=== PATIENT | female | born 1950 | race African-American/Black ===

== ENCOUNTER 2017-11-05 06:41 | Inpatient (IN) | payer OTHER ==
[~2017-11-05] VITALS: Ht 177.8 cm; Wt 87.5 kg
[2017-11-05] VITALS (11 sets, daily range): BP systolic 85–133; BP diastolic 44–79
[~2017-11-05 06:41] MED LIST: ACETAMINOPHEN-1 EAC1 ORAL; BISACODYL5 MG ORAL; CELEBREX200 MG ORAL; COLACE100 MG ORAL; COZAAR50 MG ORAL; DEXTROSE 50%-WA50 M1 IV; FEOSOL325 MG PO; FERROUS SULFAT325 MG ORAL; GLIPIZIDE5 MG ORAL; GLUCOTROL5 MG ORAL; HYDROMORPHO1 MG/1 M4 SUBQ; HYDROMORPHO2 MG/1 M2 SUBQ; JANUVIA25 MG ORAL; LOSARTAN POTASS50 MG ORAL; LOVENOX10 MG SUBQ; MILK OF MA400 MG/51 ORAL; NOVOLOG100 UNIT/3 SUBQ; NOVOLOG100 UNITS1; ONDANSETRON4 MG/2 M1 IVP; OXYCODONE HCL5 MG ORAL; OXYCONTIN20 MG ORAL; ROXICODONE15 MG ORAL; TEMAZEPAM7.5 MG ORAL; TYLENOL EXTRA500 MG ORAL; XARELTO15 MG ORAL; XARELTO20 MG ORAL; ZOFRAN 4 MG4 MG/2 ML IV
[2017-11-05] MEDS ORDERED: Clindamycin 600mg 50 ML IV ONE (07:00)
[2017-11-05] MEDS ORDERED: celeBREX 200mg Cap **SURGERY PATIENTS ONLY ORAL ONE (07:00)
[2017-11-05] MEDS ORDERED: oxyCONTIN 20mg tab ORAL ONE (07:00)
--- NOTE | 2017-11-05 07:00 | Pre-Procedure Note/Attestation ---
Pre-Procedure Note/Attestation Complete Prior to Procedure Planned Procedure: right Procedure Narrative: R ANIA Indications for Procedure Pre-Operative Diagnosis: rt hip arthritis Attestation I attest that I discussed the nature of the procedure; its benefits; risks and complications; and alternatives (and the risks and benefits of such alternatives ), prior to the procedure, with the patient (or the patient's legal accounts payable representative). I attest that, if there was a reasonable possibility of needing a blood transfusion, the patient (or the patient's legal accounts payable representative) was given the [facility] standardized written summary, pursuant to the [facility] Blood Safety Act ([place] Health and Safety Code # 1645, as amended). I attest that I re-evaluated the patient just prior to the surgery and that there has been no change in the patient's H&P, except as documented below: NONE DEANNA ENGEL Nov 05, 2017 07:00
[2017-11-05] MEDS ORDERED: Duramorph PF 5mg/10ml amp ONE (07:44)
[2017-11-05] MEDS ORDERED: VITAMIN C1000 M2 PO (07:47)
[2017-11-05] MEDS ORDERED: MULTIVITAMINS1 EAC2 ORAL (07:47)
[2017-11-05] MEDS ORDERED: VITAMIN D1000 UNI1 ORAL (07:47)
[2017-11-05] MEDS ORDERED: Bupivacaine 0.5% Inj 30 ml vial INJ ONE (08:01)
[2017-11-05] MEDS ORDERED: EPINEPHrine 1mg/1ml Amp ONE (08:02)
[2017-11-05] MEDS ORDERED: Bacitracin 50000 Units Vial ONE (08:02)
[2017-11-05] MEDS ORDERED: NeoSporin Gu Irrig 1ml Amp IRRIG ONE (08:02)
[2017-11-05] MEDS ORDERED: Vancomycin 1gm inj IVPB ONE (08:36)
[2017-11-05] MEDS ORDERED: Propofol 200mg/20ml IV ONE ×2 (08:43→11:00)
[2017-11-05] MEDS ORDERED: Tranexamic Acid 500 MG in NS 55 ML IV ONE (10:00)
[2017-11-05] MEDS ORDERED: Tranexamic Acid 1,000 MG in NS 55 ML IVPB SCH (10:30)
[2017-11-05] MEDS ORDERED: LR 1000ml 1,000 ML IVLG SCH (10:42)
--- NOTE | 2017-11-05 10:42 | Anethesia Preoperative Eval ---
Anesthesia Pre-op PMH/ROS General Date of Evaluation: Nov 05, 2017 Time of Evaluation: 09:02 Anesthesiologist: Elsie ASA Score: ASA 3 Mallampati Score Class I : Soft palate, uvula, fauces, pillars visible Class II: Soft palate, uvula, fauces visible Class III: Soft palate, base of uvula visible Class IV: Only hard plate visible Mallampati Classification: Class II Surgeon: Kimberly Diagnosis: R hip DJD Surgical Procedure: R hip arthroplasty Anesthesia History: none Family History: no anesthesia problems Allergies: Coded Allergies: PENICILLINS (Verified Allergy, Intermediate, itching , 11/05/17) HYDROCODONE (Verified Adverse Reaction, Severe, nausea, 11/05/17) TRAMADOL (Verified Adverse Reaction, Severe, nausea, 11/05/17) CODEINE (Verified Adverse Reaction, Intermediate, nausea, 11/05/17) Medications: see eMAR Past Medical History Cardiovascular: Reports: HTN, Denies: CAD, OR, valve dz, arrhythmia, other Pulmonary: Denies: asthma, COPD, SOCO, other Gastrointestinal/Genitourinary: Reports: GERD, Denies: CRI - mild Neurologic/Psychiatric: Reports: other - chronic pain, Denies: dementia, CVA, depression/anxiety, TIA Endocrine: Reports: DM, Denies: hypothyroidism, steroids, other HEENT: Denies: cataract (L), cataract (R), glaucoma, ALUTIIQ (L), ALUTIIQ (R), other Hematology/Immune: Reports: anemia - mild, Denies: DVT, bleeding disorder, other Musculoskeletal/Integumentary: Reports: DJD, Denies: OA, RA, DDD, edema, other PMH Narrative: as above PSxH Narrative: appendectomy, bilateral knees replacement Anesthesia Pre-op Phys. Exam Physician Exam Last Vital Signs Date Time Temp Pulse Resp B/P (MAP) Pulse Ox O2 Delivery O2 Flow Rate FiO2 11/05/17 07:51 97.7 72 18 133/79 99 Room Air Constitutional: NAD Neurologic: CN 2-12 intact Cardiovascular: RRR, no M/R/G Respiratory: CTA Gastrointestinal: S/NT/ND Airway Exam Mallampati Score: Class II MO: limited Neck: stiff ROM: limited Teeth: missing Dentures: no upper, no lower Anesthesia Pre-op A/P Labs see chart Studies Pre-op Studies: EKG - NSR Risk Assessment & Plan Assessment: ASA 3 Plan: SAB vs GA Status Change Before Surgery: No Pre-Antibiotics Drug: Vancomycin 1gr. Given Within 1 Hr of Incision: Yes Time Given: 09:58 TONY DUARTE M.D. Nov 05, 2017 10:42
[2017-11-05] MEDS ORDERED: DiphenhydrAMINE 50mg/ml Inj IVP PRN (10:45)
[2017-11-05] MEDS ORDERED: LR 1000ml ONE (11:00)
[2017-11-05] MEDS ORDERED: NS Irrig 1000ml ONE (11:00)
[2017-11-05] MEDS ORDERED: fentaNYL 100 mcg/2 mL IV ONE (11:00)
[2017-11-05] MEDS ORDERED: Sterile Water Irrig 1000ml IRRIG ONE (11:00)
--- NOTE | 2017-11-05 12:18 | Brief Operative Note ---
Immediate Post Operative Note Operative Note Chief Complaint: rt hip pain Pre-op Diagnosis: rt hip arthritis Procedure: rt monika Post-op Diagnosis: same as pre-op Findings: consistent w/pre-op dx studies Surgeon: md henri Digital [employer] Strategist: linda schilling Anesthesiologist: md kj Anesthesia: general Specimen: yes Complications: none Condition: stable Fluids: ns Estimated Blood Loss: minimal Drains: none Implant(s) used?: Yes - garcia and nephLIBRA Lopez Nov 05, 2017 12:18
--- NOTE | 2017-11-05 12:26 | Immediate Post-Op Evaluation ---
Immediate Post-Op Evalulation Immediate Post-Op Evalulation Procedure: R total hip arthroplasty Date of Evaluation: Nov 05, 2017 Time of Evaluation: 12:24 IV Fluids: 1700 Blood Products: none Estimated Blood Loss: 200 Urinary Output: 150 Blood Pressure Systolic: 96 Blood Pressure Diastolic: 58 Pulse Rate: 57 Respiratory Rate: 20 O2 Sat by Pulse Oximetry: 99 Temperature (Fahrenheit): 97.8 Pain Score (1-10): 2 Nausea: No Vomiting: No Complications none Patient Status: awake, patent, none Hydration Status: adequate TONY DUARTE M.D. Nov 05, 2017 12:26
--- NOTE | 2017-11-05 13:13 | Diagnostic Imaging Report ---
Indication: Intraoperative imaging Technique: One view of the pelvis intraoperative Comparison: 04/02/2017 Findings: The acetabular cup of the right hip arthroplasty prosthesis is in place. There is also a femoral broach. A Jackson catheter is noted Impression: Intraoperative imaging, as described
--- NOTE | 2017-11-05 14:26 | General Progress Note ---
Assessment/Plan Status Narrative s/p toal hip arthroplasty pt or dvt prophyalxis paincontrol periooperative antibiotic prophyalixs also has diabetes acuucheck sliding scale januvia 100 daily adn follow Subjective Date patient seen: Nov 05, 2017 Time patient seen: 14:25 Constitutional: Reports: no symptoms HEENT: Reports: no symptoms Cardiovascular: Reports: no symptoms Respiratory: Reports: no symptoms Allergies: Coded Allergies: PENICILLINS (Verified Allergy, Intermediate, itching , 11/05/17) HYDROCODONE (Verified Adverse Reaction, Severe, nausea, 11/05/17) TRAMADOL (Verified Adverse Reaction, Severe, nausea, 11/05/17) CODEINE (Verified Adverse Reaction, Intermediate, nausea, 11/05/17) Objective Last 24 Hour Vital Signs Date Time Temp Pulse Resp B/P (MAP) Pulse Ox O2 Delivery O2 Flow Rate FiO2 11/05/17 13:25 97.0 55 14 95/52 100 Nasal Cannula 3.0 11/05/17 13:15 58 15 93/52 100 Nasal Cannula 3.0 11/05/17 13:00 56 13 99/55 100 Nasal Cannula 3.0 11/05/17 12:50 59 14 95/52 100 Nasal Cannula 3.0 11/05/17 12:40 57 12 89/52 100 Nasal Cannula 3.0 11/05/17 12:30 60 12 85/44 100 Simple Mask 6.0 11/05/17 12:26 208.0 57 20 99 11/05/17 12:25 64 14 96/54 100 Simple Mask 6.0 11/05/17 12:20 97.4 72 16 109/63 100 Simple Mask 6.0 11/05/17 07:51 97.7 72 18 133/79 99 Room Air Height (Feet): 5 Height (Inches): 10.00 Weight (Pounds): 193 General Appearance: WD/WN EENT: PERRL/EOMI Neck: supple Cardiovascular: no JVD Respiratory/Chest: lungs clear Abdomen: non tender, soft ANDREA BELLA Nov 05, 2017 14:26
--- NOTE | 2017-11-05 14:51 | Diagnostic Imaging Report ---
Indication: Postoperative status post right hip arthroplasty Technique: One view of the pelvis Comparison: 2 hours earlier Findings: Right hip arthroplasty prosthesis now in place, complete. Retained air from the surgical wound is seen within soft tissues. Severe degenerative changes of the left hip are noted Impression: Postoperative right hip, as described. No unusual features
[2017-11-05] MEDS ORDERED: oxyCODONE 5mg IR tab ORAL PRN (15:00)
[2017-11-05] MEDS ORDERED: Hydromorphone 0.5mg/0.5ml inj IVP PRN (15:00)
[2017-11-05] MEDS ORDERED: Ketorolac 30mg Inj IV PRN (15:00)
[2017-11-05] MEDS ORDERED: Milk of Magnesia 30ml Ud ORAL PRN (15:00)
[2017-11-05] MEDS: D5 1/2NS w/KCl 20mEq 1,000 ML IV SCH (16:01)
[2017-11-05] MEDS: Clindamycin 600mg 50 ML IV SCH ×2 (16:03→21:15)
[2017-11-05] MEDS: NovoLOG Insulin Flexpen SUBQ SCH ×2 (16:30→21:17)
--- NOTE | 2017-11-05 16:45 | Operative Note - Dictated ---
DATE OF OPERATION: 11/05/2017 PREOPERATIVE DIAGNOSIS: Right hip end-stage arthritis with severe arthritis and osteophyte formation. POSTOPERATIVE DIAGNOSIS: Right hip end-stage arthritis with severe arthritis and osteophyte formation. PROCEDURE: Right total hip arthroplasty using Barajas and Nephew system, size 54 mm hemispheric R3 cup with 3 holes with 2 dome screws, size 54 ultra cross-linked polyethylene liner with 20-degree lip, size #4 Anthology standard neck stem, and a 36-mm +0 cobalt-chromium femoral head. SURGEON: Devonte Harris M.D. ARMORING MACHINE OPERATOR: Romina Faria PA-C. ANESTHESIOLOGIST: Rick Zimmerman M.D. ANESTHESIA: Spinal anesthesia combined with LMA anesthesia. ESTIMATED BLOOD LOSS: Less than 150 mL. COMPLICATIONS: None. BRIEF HISTORY: The patient is a pleasant 67-year-old female, who has had ongoing arthritis in her hips. She failed nonoperative treatment. After full discussion of risks and benefits of surgery and complications associated with it including infection, bleeding, neurovascular complication, possibility of leg length discrepancy, DVT, PEs, dislocation, infection requiring resection arthroplasty, need for revision surgery down the line, possibility of injury to sciatic nerve with numbness, tingling, footdrops, or other complication, and other complications that may arise down the line, she opted for surgical treatment as described above. OPERATIVE PROCEDURE: The patient was brought to the operating table and was placed supine. Spinal anesthesia was induced. The patient was placed in left lateral decubitus position with the right hip up. The patient was stabilized using pegboard and pegs which were covered. All pressure points were well padded. The right hip was prepped and draped in usual sterile fashion. As the patient was being checked on starting the surgery, it was noted that the spinal anesthesia was not working well. Therefore, LMA anesthesia was induced by the anesthesiologist. Preop antibiotic was given and tranexamic acid was given, and standard posterior approach to the hip was undertaken. A standard incision was made over the right hip and incision was taken through subcutaneous tissue and the fascia was opened. Retractors were placed in and short external rotators were released and tagged for later repair. The capsule was T'd including the tagging. There was extensive osteophyte over the rim of the acetabulum which was debrided. The hip was then dislocated. The femoral head was very arthritic. At this point, a standard femoral neck cut was performed without any complications. At this point, the anterior acetabular retractors as well as other retractors were placed around the acetabulum. The acetabulum was visualized and it was arthritic. At this point, there was a slight osteophyte on the acetabulum. Using a reamer, the acetabulum was slightly medialized. Subsequently, sequential reaming was performed from 45 mm up to 54 mm to provide excellent stability. The inclination and anteversion was created and about 35 degrees of anteversion and 45 degrees of inclination was created. Once this was completed, trialing was performed and size 54 mm appeared to be the right size. At this point, R3 54-mm hemispheric cup with 3 dome screws was then malleted in and was well-seated in good anteversion and inclination as described previously. The 2 dome screws were placed in without any complication. Once this was completed, care was given to the liner. The acetabulum was thoroughly irrigated using Simpulse irrigation and a [id number] liner was placed in without any complication. Once this was completed, care was given to the femoral side. The femur was internally rotated. Using a experimental box tester, lateralized entry point was identified. Subsequently, a canal finder was placed and sequential broaching was performed to size #4 broach. This provided excellent axial and rotational stability. At this point, a standard neck and zero-length 36-mm femoral head was then applied and the entire construct was reduced. Leg lengths appeared to be equal. The flexion and extension was checked and appeared to be perfect. Stability was checked with external rotation and there was no anterior instability. Posterior stability was checked with hip flexed initially up to 45 degrees and subsequently to 90 degrees, and internal rotation remained up to 75-80 degrees without any dislocations. At this point, the trial components were removed. The femoral component was thoroughly irrigated. Intraoperative x-rays were obtained before removing the trial components and leg lengths appeared to be equal and the femoral canal was filled. At this point, a size #4 femoral component was then applied without any complication. Standard neck was used. Once this was well-seated, the neck and Lorenzo taper were dried and the 36-mm cobalt-chromium +0 neck length was then applied and locked in, and tapped in without any complication. Excellent stability was obtained. The entire construct was reduced. Intraoperative leg length and stability was checked and appeared to be perfect. The wounds were thoroughly irrigated using copious amount of Simpulse irrigation. At this point, short external rotators were closed using drill holes into the greater trochanter, the tensor fascia was closed using #1 Vicryl suture, subcutaneous tissue was closed in 2-0 Vicryl suture, and skin was closed using 2-0 Monocryl suture. Sterile dressing was applied and the patient was taken to recovery room in stable condition. Lap counts and instrument counts were correct. Devonte Harris M.D. DR: Thiago JOB#: [id number] CC:
[2017-11-05] MEDS: Docusate 100mg cap ORAL SCH (17:39)
[2017-11-05] MEDS ORDERED: oxyCONTIN 20mg tab ORAL SCH (21:00)
--- NOTE | 2017-11-05 22:00 | Operative Note - Dictated ---
DATE OF OPERATION: 11/05/2017 PREOPERATIVE DIAGNOSIS: Right hip end-stage arthritis with severe arthritis and osteophyte formation. POSTOPERATIVE DIAGNOSIS: Right hip end-stage arthritis with severe arthritis and osteophyte formation. PROCEDURE: Right total hip arthroplasty using Barajas and Nephew system, size 54 mm hemispheric R3 cup with 3 holes with 2 dome screws, size 54 ultra cross-linked polyethylene liner with 20-degree lip, size #4 Anthology standard neck stem, and a 36-mm +0 cobalt-chromium femoral head. SURGEON: Devonte Harris M.D. FRONT DESK LEAD: Romina Faria PA-C. ANESTHESIOLOGIST: Rick Zimmerman M.D. ANESTHESIA: Spinal anesthesia combined with LMA anesthesia. ESTIMATED BLOOD LOSS: Less than 150 mL. COMPLICATIONS: None. BRIEF HISTORY: The patient is a pleasant 67-year-old female, who has had ongoing arthritis in her hips. She failed nonoperative treatment. After full discussion of risks and benefits of surgery and complications associated with it including infection, bleeding, neurovascular complication, possibility of leg length discrepancy, DVT, PEs, dislocation, infection requiring resection arthroplasty, need for revision surgery down the line, possibility of injury to sciatic nerve with numbness, tingling, foot-drops, or other complications that may arise down the line, she opted for surgical treatment as described above. OPERATIVE PROCEDURE: The patient was brought to the operating table and was placed supine. Spinal anesthesia was induced. The patient was placed in left lateral decubitus position with the right hip up. The patient was stabilized using pegboard and pegs which were covered. All pressure points were well padded. The right hip was prepped and draped in usual sterile fashion. As the patient was being checked on starting the surgery, it was noted that the spinal anesthesia was not working well. Therefore, LMA anesthesia was induced by the anesthesiologist. Preop antibiotic was given and tranexamic acid was given, and standard posterior approach to the hip was undertaken. A standard incision was made over the right hip and incision was taken through subcutaneous tissue and the fascia was opened. Retractors were placed in and short external rotators were released and tagged for later repair. The capsule was T'd including the tagging. There was extensive osteophyte over the rim of the acetabulum which was debrided. The hip was then dislocated. The femoral head was very arthritic. At this point, a standard femoral neck cut was performed without any complications. At this point, the anterior acetabular retractors as well as other retractors were placed around the acetabulum. The acetabulum was visualized and it was arthritic. At this point, there was a slight osteophyte on the acetabulum. Using a reamer, the acetabulum was slightly medialized. Subsequently, sequential reaming was performed from 45 mm up to 54 mm to provide excellent stability. The inclination and anteversion was created and about 35 degrees of anteversion and 45 degrees of inclination was created. Once this was completed, trialing was performed and size 54 mm appeared to be the right size. At this point, R3 54-mm hemispheric cup with three dome screw holes was then malleted in and was well-seated in good anteversion and inclination as described previously. The two dome screws were placed in without any complication. Once this was completed, care was given to the liner. The acetabulum was thoroughly irrigated using Simpulse irrigation and a [id number] liner was placed in without any complication. Once this was completed, care was given to the femoral side. The femur was internally rotated. Using a crap game box person, lateralized entry point was identified. Subsequently, a canal finder was placed and sequential broaching was performed to size #4 broach. This provided excellent axial and rotational stability. At this point, a standard neck and zero-length 36-mm femoral head was then applied and the entire construct was reduced. Leg lengths appeared to be equal. The flexion and extension was checked and appeared to be perfect. Stability was checked with external rotation and there was no anterior instability. Posterior stability was checked with hip flexed initially up to 45 degrees and subsequently to 90 degrees, and internal rotation remained up to 75-80 degrees without any dislocations. At this point, the trial components were removed. The femoral component was thoroughly irrigated. Intraoperative x-rays were obtained before removing the trial components and leg lengths appeared to be equal and the femoral canal was filled. At this point, a size #4 femoral component was then applied without any complication. Standard neck was used. Once this was well-seated, the neck and Lorenzo taper were dried and the 36-mm cobalt-chromium +0 neck length was then applied and locked in, and tapped in without any complication. Excellent stability was obtained. The entire construct was reduced. Intraoperative leg length and stability was checked and appeared to be perfect. The wounds were thoroughly irrigated using copious amount of Simpulse irrigation. At this point, short external rotators were closed using drill holes into the greater trochanter, the tensor fascia was closed using #1 Vicryl suture, subcutaneous tissue was closed in 2-0 Vicryl suture, and skin was closed using 3-0 Monocryl suture. Sterile dressing was applied and the patient was taken to recovery room in stable condition. Lap counts and instrument counts were correct. Devonte Harris M.D. DR: Thiago JOB#: [id number] CC: ELIESER
[2017-11-06] VITALS (9 sets, daily range): BP systolic 84–111; BP diastolic 49–63
[2017-11-06] MEDS: D5 1/2NS w/KCl 20mEq 1,000 ML IV SCH ×3 (04:17→17:33)
[2017-11-06] MEDS: Clindamycin 600mg 50 ML IV SCH ×2 (04:17→10:07)
[2017-11-06] MEDS: NovoLOG Insulin Flexpen SUBQ SCH ×4 (06:14→20:01)
--- NOTE | 2017-11-06 08:08 | 48 Hour Post Anesthesia Eval ---
Post Anesthesia Evaluation Procedure: R total hip arthroplasty Date of Evaluation: Nov 06, 2017 Time of Evaluation: 06:50 Blood Pressure Systolic: 103 0: 63 Pulse Rate: 81 Respiratory Rate: 17 Temperature (Fahrenheit): 98.6 O2 Sat by Pulse Oximetry: 98 Airway: patent Nausea: No Vomiting: No Pain Intensity: 2 Hydration Status: adequate Cardiopulmonary Status: at baas[place] Mental Status/LOC: patient returned to baseline Post-Anesthesia Complications: 0 Follow-up care needed: N/A - further care as per primary team AMANDA NICOLE M.D. Nov 06, 2017 08:08
--- NOTE | 2017-11-06 08:13 | Orthopedic Progress Note ---
Orthopedic - Progress Note Subjective Symptoms: c/o post-op hip pain, other - tired Objective Vital Signs Labs pending Last 24 Hour Vital Signs Date Time Temp Pulse Resp B/P (MAP) Pulse Ox O2 Delivery O2 Flow Rate FiO2 11/06/17 08:08 209.5 81 17 98 11/06/17 04:39 98.6 81 17 98 98.6 11/06/17 04:00 99 Nasal Cannula 3.0 11/06/17 00:26 97.6 64 18 103/63 99 97.6 11/06/17 00:00 Nasal Cannula 3.0 11/05/17 20:52 97.5 69 18 109/66 98 97.5 11/05/17 20:00 Nasal Cannula 3.0 11/05/17 16:00 97.1 58 16 100/58 100 Nasal Cannula 3.0 97.1 11/05/17 13:25 97.0 55 14 95/52 100 Nasal Cannula 3.0 11/05/17 13:15 58 15 93/52 100 Nasal Cannula 3.0 11/05/17 13:00 56 13 99/55 100 Nasal Cannula 3.0 11/05/17 12:50 59 14 95/52 100 Nasal Cannula 3.0 11/05/17 12:40 57 12 89/52 100 Nasal Cannula 3.0 11/05/17 12:30 60 12 85/44 100 Simple Mask 6.0 11/05/17 12:26 208.0 57 20 99 11/05/17 12:25 64 14 96/54 100 Simple Mask 6.0 11/05/17 12:20 97.4 72 16 109/63 100 Simple Mask 6.0 I&O Intake and Output 11/05/17 11/06/17 19:00 07:00 Intake Total 2675 ml 675 ml Output Total 350 ml 200 ml Balance 2325 ml 475 ml Intake IV Total 2675 ml 675 ml Output Urine Total 200 ml 200 ml Estimated Blood Loss 150 ml # Voids 1 1 Wound: clean, dry, intact Drains: none Neuro Status: normal Vascular Status: normal Additional Comments xray excellent Assessment Post-op Diagnosis POD 1 Procedure Performed rt monika Plan Plan: PT, pain management - will hold BID oxy given lethargy, discharge plan - SNF on saturday, other - f/u today's labs MUCCIGROSSO,LIBRA P.A. Nov 06, 2017 08:13
[2017-11-06] MEDS: Docusate 100mg cap ORAL SCH ×3 (08:54→17:31)
[2017-11-06] MEDS: celeBREX 200mg Cap **SURGERY PATIENTS ONLY ORAL SCH (08:56)
[2017-11-06] MEDS: Enoxaparin 40mg Inj SUBQ SCH (08:57)
[2017-11-06 09:36] LABS: BASOPHILS % (AUTO) 1.1 % (0.0-2.0); EOSINOPHILS % (AUTO) 1.4 % (0.0-3.0); HEMATOCRIT 31.7 % (37.0-47.0); HEMOGLOBIN 10.8 G/DL (12.0-16.0); LYMPHOCYTES % (AUTO) 21.4 % (20.0-45.0); MEAN CORPUSCULAR VOLUME 92 FL (80-99); MONOCYTES % (AUTO) 9.9 % (1.0-10.0); NEUTROPHILS % (AUTO) 66.2 % (45.0-75.0); PLATELET COUNT 180 K/UL (150-450); RED BLOOD COUNT 3.43 M/UL (4.20-5.40); RED CELL DISTRIBUTION WIDTH 12.5 % (11.6-14.8); WHITE BLOOD COUNT 5.5 K/UL (4.8-10.8)
[2017-11-06 09:38] LABS: ANION GAP 4 mmol/L (5-15); BLOOD UREA NITROGEN 18 mg/dL (7-18); CALCIUM 8.7 MG/DL (8.5-10.1); CARBON DIOXIDE 28 MMOL/L (21-32); CHLORIDE 107 MMOL/L (98-107); CREATININE 1.4 MG/DL (0.55-1.30); SODIUM 139 MMOL/L (136-145)
--- NOTE | 2017-11-06 20:02 | General Progress Note ---
Assessment/Plan Status Narrative S/P THR PERIOPERATIVE BLOOD LOSS POST OP ANEMIA PT OT DVT PROPHYALIXS DIABETES ACCUC HECK SLIDING SCALE AD ADIET MONITOR LABS Subjective Date patient seen: Nov 06, 2017 Time patient seen: 19:58 Constitutional: Reports: no symptoms HEENT: Reports: no symptoms Cardiovascular: Reports: no symptoms Allergies: Coded Allergies: PENICILLINS (Verified Allergy, Intermediate, itching , 11/05/17) HYDROCODONE (Verified Adverse Reaction, Severe, nausea, 11/05/17) TRAMADOL (Verified Adverse Reaction, Severe, nausea, 11/05/17) CODEINE (Verified Adverse Reaction, Intermediate, nausea, 11/05/17) Objective Last 24 Hour Vital Signs Date Time Temp Pulse Resp B/P (MAP) Pulse Ox O2 Delivery O2 Flow Rate FiO2 11/06/17 18:30 99.3 11/06/17 18:00 99.3 11/06/17 17:17 99.3 96 19 105/54 95 Room Air 99.3 96 11/06/17 16:00 99.3 96 19 105/54 Room Air 99.3 11/06/17 14:15 81 105/61 11/06/17 14:15 79 87/51 11/06/17 14:15 85 111/63 11/06/17 12:31 98.2 83 20 96/52 96 Room Air 98.2 83 11/06/17 09:17 98.0 11/06/17 09:12 100.0 82 21 88/49 96 Room Air 100.0 11/06/17 09:00 98.0 84 84/58 98.0 11/06/17 09:00 91 102/53 11/06/17 09:00 87 93/50 11/06/17 08:18 100.5 11/06/17 08:08 209.5 81 17 98 11/06/17 08:00 100.5 82 21 86/49 96 Room Air 100.5 11/06/17 08:00 82 88/49 11/06/17 04:39 98.6 81 17 98 98.6 11/06/17 04:00 99 Nasal Cannula 3.0 11/06/17 00:26 97.6 64 18 103/63 99 97.6 11/06/17 00:00 Nasal Cannula 3.0 11/05/17 20:52 97.5 69 18 109/66 98 97.5 11/05/17 20:00 Nasal Cannula 3.0 Intake and Output 11/05/17 11/06/17 19:00 07:00 Intake Total 2675 ml 675 ml Output Total 350 ml 200 ml Balance 2325 ml 475 ml IV Total 2675 ml 675 ml Output Urine Total 200 ml 200 ml Estimated Blood Loss 150 ml # Voids 1 1 Laboratory Tests 11/06/17 08:35: White Blood Count 5.5, Red Blood Count 3.43L, Hemoglobin 10.8L, Hematocrit 31.7L , Mean Corpuscular Volume 92, Mean Corpuscular Hemoglobin 31.4H, Mean Corpuscular Hemoglobin Concent 33.9, Red Cell Distribution Width 12.5, Platelet Count 180, Mean Platelet Volume 5.8L, Neutrophils (%) (Auto) 66.2, Lymphocytes ( %) (Auto) 21.4, Monocytes (%) (Auto) 9.9, Eosinophils (%) (Auto) 1.4, Basophils (%) (Auto) 1.1, Sodium Level 139, Potassium Level 4.0, Chloride Level 107, Carbon Dioxide Level 28, Anion Gap 4L, Blood Urea Nitrogen 18, Creatinine 1.4H, Estimat Glomerular Filtration Rate 45.3, Glucose Level 131H, Calcium Level 8.7 Height (Feet): 5 Height (Inches): 10.00 Weight (Pounds): 193 General Appearance: WD/WN EENT: PERRL/EOMI Neck: supple Cardiovascular: normal rate, regular rhythm, no JVD Respiratory/Chest: lungs clear Abdomen: soft ANDREA BELLA Nov 06, 2017 20:01
[2017-11-07] VITALS: BP 120/70
[2017-11-07] MEDS: D5 1/2NS w/KCl 20mEq 1,000 ML IV SCH ×2 (03:55→14:50)
[2017-11-07 04:00] VITALS: BP 131/67
[2017-11-07] MEDS: NovoLOG Insulin Flexpen SUBQ SCH ×4 (06:19→21:22)
[2017-11-07 07:26] LABS: BASOPHILS % (AUTO) 0.9 % (0.0-2.0); EOSINOPHILS % (AUTO) 1.1 % (0.0-3.0); HEMATOCRIT 31.1 % (37.0-47.0); HEMOGLOBIN 10.6 G/DL (12.0-16.0); LYMPHOCYTES % (AUTO) 15.1 % (20.0-45.0); MEAN CORPUSCULAR VOLUME 92 FL (80-99); MONOCYTES % (AUTO) 7.9 % (1.0-10.0); PLATELET COUNT 184 K/UL (150-450); RED BLOOD COUNT 3.37 M/UL (4.20-5.40); RED CELL DISTRIBUTION WIDTH 12.3 % (11.6-14.8); WHITE BLOOD COUNT 7.6 K/UL (4.8-10.8)
--- NOTE | 2017-11-07 07:29 | Orthopedic Progress Note ---
Orthopedic - Progress Note Subjective Symptoms: c/o post-op hip pain Objective Vital Signs Last 24 Hour Vital Signs Date Time Temp Pulse Resp B/P (MAP) Pulse Ox O2 Delivery O2 Flow Rate FiO2 11/07/17 04:00 98.2 81 18 131/67 100 Room Air 98.2 11/07/17 00:00 98.3 82 18 120/70 99 Room Air 98.3 11/06/17 20:00 98.4 70 18 97/58 95 Room Air 98.4 11/06/17 18:30 99.3 11/06/17 18:00 99.3 11/06/17 17:17 99.3 96 19 105/54 95 Room Air 99.3 96 11/06/17 16:00 99.3 96 19 105/54 Room Air 99.3 11/06/17 14:15 81 105/61 11/06/17 14:15 79 87/51 11/06/17 14:15 85 111/63 11/06/17 12:31 98.2 83 20 96/52 96 Room Air 98.2 83 11/06/17 09:17 98.0 11/06/17 09:12 100.0 82 21 88/49 96 Room Air 100.0 11/06/17 09:00 98.0 84 84/58 98.0 11/06/17 09:00 91 102/53 11/06/17 09:00 87 93/50 11/06/17 08:18 100.5 11/06/17 08:08 209.5 81 17 98 11/06/17 08:00 100.5 82 21 86/49 96 Room Air 100.5 11/06/17 08:00 82 88/49 I&O Intake and Output 11/06/17 11/07/17 19:00 07:00 Intake Total 1625 ml 1340 ml Output Total 300 ml Balance 1325 ml 1340 ml Intake Oral 875 ml 240 ml IV Total 750 ml 1100 ml Output Urine Total 300 ml # Voids 1 2 Wound: clean, dry Drains: none Neuro Status: normal Assessment Post-op Diagnosis Doing well s/p Right ANIA Plan Plan: PT, pain management, discharge plan Additional Comments Dressing changes today Check DEANNA Liao Nov 07, 2017 07:29
[2017-11-07 08:00] VITALS: BP 137/73
[2017-11-07] MEDS: Docusate 100mg cap ORAL SCH ×3 (09:29→17:36)
[2017-11-07] MEDS: celeBREX 200mg Cap **SURGERY PATIENTS ONLY ORAL SCH (09:29)
[2017-11-07] MEDS: Enoxaparin 40mg Inj SUBQ SCH (09:30)
[2017-11-07 12:01] VITALS: BP 124/69
--- NOTE | 2017-11-07 14:25 | General Progress Note ---
Assessment/Plan Status Narrative s/p total hisp arthroplasty perioperative blood loss anemia pt ot dvt prophjyalixs paibncontyrol Subjective Date patient seen: Nov 07, 2017 Time patient seen: 14:24 Constitutional: Reports: no symptoms HEENT: Reports: no symptoms Cardiovascular: Reports: no symptoms Respiratory: Reports: no symptoms Allergies: Coded Allergies: PENICILLINS (Verified Allergy, Intermediate, itching , 11/05/17) HYDROCODONE (Verified Adverse Reaction, Severe, nausea, 11/05/17) TRAMADOL (Verified Adverse Reaction, Severe, nausea, 11/05/17) CODEINE (Verified Adverse Reaction, Intermediate, nausea, 11/05/17) Objective Last 24 Hour Vital Signs Date Time Temp Pulse Resp B/P (MAP) Pulse Ox O2 Delivery O2 Flow Rate FiO2 11/07/17 12:05 98.4 11/07/17 12:01 98.4 84 19 124/69 100 98.4 11/07/17 11:03 98.4 11/07/17 08:00 98.4 84 19 137/73 97 98.4 11/07/17 04:00 98.2 81 18 131/67 100 Room Air 98.2 11/07/17 00:00 98.3 82 18 120/70 99 Room Air 98.3 11/06/17 20:00 98.4 70 18 97/58 95 Room Air 98.4 11/06/17 18:00 99.3 11/06/17 17:17 99.3 96 19 105/54 95 Room Air 99.3 96 11/06/17 16:00 99.3 96 19 105/54 Room Air 99.3 Intake and Output 11/06/17 11/07/17 19:00 07:00 Intake Total 1625 ml 1340 ml Output Total 300 ml Balance 1325 ml 1340 ml Intake Oral 875 ml 240 ml IV Total 750 ml 1100 ml Output Urine Total 300 ml # Voids 1 2 Laboratory Tests 11/07/17 06:00: White Blood Count 7.6, Red Blood Count 3.37L, Hemoglobin 10.6L, Hematocrit 31.1L , Mean Corpuscular Volume 92, Mean Corpuscular Hemoglobin 31.3H, Mean Corpuscular Hemoglobin Concent 33.9, Red Cell Distribution Width 12.3, Platelet Count 184, Mean Platelet Volume 6.4L, Neutrophils (%) (Auto) 75.0, Lymphocytes ( %) (Auto) 15.1L, Monocytes (%) (Auto) 7.9, Eosinophils (%) (Auto) 1.1, Basophils (%) (Auto) 0.9 Height (Feet): 5 Height (Inches): 10.00 Weight (Pounds): 193 General Appearance: WD/WN Neck: supple Cardiovascular: normal rate, no JVD Respiratory/Chest: lungs clear Abdomen: non tender, soft Extremities: other - no edema ANDREA BELLA Nov 07, 2017 14:25
[2017-11-07 16:00] VITALS: BP 133/65
[2017-11-07 20:00] VITALS: BP 108/57
[2017-11-08] VITALS: BP 117/65
[2017-11-08] MEDS: D5 1/2NS w/KCl 20mEq 1,000 ML IV SCH (00:01)
[2017-11-08 04:00] VITALS: BP 130/69
[2017-11-08] MEDS: NovoLOG Insulin Flexpen SUBQ SCH ×3 (05:50→16:30)
[2017-11-08 06:38] LABS: EOSINOPHILS % (AUTO) 2.1 % (0.0-3.0); HEMATOCRIT 30.4 % (37.0-47.0); HEMOGLOBIN 10.3 G/DL (12.0-16.0); MEAN CORPUSCULAR VOLUME 92 FL (80-99); MONOCYTES % (AUTO) 8.5 % (1.0-10.0); NEUTROPHILS % (AUTO) 69.4 % (45.0-75.0); PLATELET COUNT 175 K/UL (150-450); RED CELL DISTRIBUTION WIDTH 12.2 % (11.6-14.8); WHITE BLOOD COUNT 6.5 K/UL (4.8-10.8)
[2017-11-08 08:00] VITALS: BP 132/71
--- NOTE | 2017-11-08 08:08 | Orthopedic Progress Note ---
Orthopedic - Progress Note Subjective Symptoms: improved - SLOW WITH PT. RECOMMENDATION IS FOR SNF Objective Vital Signs Laboratory Tests Test 11/08/17 05:40 White Blood Count 6.5 K/UL (4.8-10.8) Red Blood Count 3.30 M/UL (4.20-5.40) L Hemoglobin 10.3 G/DL (12.0-16.0) L Hematocrit 30.4 % (37.0-47.0) L Mean Corpuscular Volume 92 FL (80-99) Mean Corpuscular Hemoglobin 31.2 PG (27.0-31.0) H Mean Corpuscular Hemoglobin Concent 33.9 G/DL (32.0-36.0) Red Cell Distribution Width 12.2 % (11.6-14.8) Platelet Count 175 K/UL (150-450) Mean Platelet Volume 6.0 FL (6.5-10.1) L Neutrophils (%) (Auto) 69.4 % (45.0-75.0) Lymphocytes (%) (Auto) 18.0 % (20.0-45.0) L Monocytes (%) (Auto) 8.5 % (1.0-10.0) Eosinophils (%) (Auto) 2.1 % (0.0-3.0) Basophils (%) (Auto) 2.0 % (0.0-2.0) Last 24 Hour Vital Signs Date Time Temp Pulse Resp B/P (MAP) Pulse Ox O2 Delivery O2 Flow Rate FiO2 11/08/17 04:00 97.7 80 20 130/69 96 Room Air 97.7 11/08/17 00:00 98.2 79 20 117/65 98 Room Air 98.2 11/07/17 20:00 97.7 81 18 108/57 97 Room Air 97.7 11/07/17 18:10 98.4 11/07/17 17:41 98.4 11/07/17 16:00 98.4 80 19 133/65 100 98.4 11/07/17 12:01 98.4 84 19 124/69 100 98.4 11/07/17 11:03 98.4 I&O Intake and Output 11/07/17 11/08/17 19:00 07:00 Intake Total 1820 ml 800 ml Balance 1820 ml 800 ml Intake Oral 720 ml 200 ml IV Total 1100 ml 600 ml # Voids 2 3 Wound: clean, dry, intact Drains: none Neuro Status: normal Vascular Status: normal Assessment Post-op Diagnosis POD 3 Procedure Performed rt monika Plan Plan: discharge plan - REC D/C TO SNF. STABLE FOR TRANSFER AND D/C TODAY. ESTHELA ENGEL 2 WEEKS LIBRA TORRES Nov 08, 2017 08:08
--- NOTE | 2017-11-08 08:09 | Discharge Summary ---
Discharge Summary Hospital Course Date of Admission Nov 05, 2017 at 06:41 Date of Discharge 11/08/17 Admitting Diagnosis RT HIP ARTHRITIS HPI Marek Patino is a 67 year old female who was admitted on Nov 05, 2017 at 06:41 for Traumatic Arthropathy Consultations JENA Procedures RT ANIA Hospital Course BENIGN Discharge Condition Upon Discharge: stable Discharge Disposition Patient was discharged to SNF Discharge Diagnoses: LIBRA TORRES Nov 08, 2017 08:09
--- NOTE | 2017-11-08 08:36 | General Progress Note ---
Assessment/Plan Status Narrative s/p THR diabetes anemia Assessment/Plan pt ot dvt prophyalxis pain control venous duplex no DVt and follow Subjective Date patient seen: Nov 08, 2017 Time patient seen: 08:35 ROS Limited/Unobtainable: Yes Constitutional: Reports: no symptoms HEENT: Reports: no symptoms Cardiovascular: Reports: no symptoms Allergies: Coded Allergies: PENICILLINS (Verified Allergy, Intermediate, itching , 11/05/17) HYDROCODONE (Verified Adverse Reaction, Severe, nausea, 11/05/17) TRAMADOL (Verified Adverse Reaction, Severe, nausea, 11/05/17) CODEINE (Verified Adverse Reaction, Intermediate, nausea, 11/05/17) Subjective has pain sllept ok no bm yeat Objective Last 24 Hour Vital Signs Date Time Temp Pulse Resp B/P (MAP) Pulse Ox O2 Delivery O2 Flow Rate FiO2 11/08/17 04:00 97.7 80 20 130/69 96 Room Air 97.7 11/08/17 00:00 98.2 79 20 117/65 98 Room Air 98.2 11/07/17 20:00 97.7 81 18 108/57 97 Room Air 97.7 11/07/17 18:10 98.4 11/07/17 17:41 98.4 11/07/17 16:00 98.4 80 19 133/65 100 98.4 11/07/17 12:01 98.4 84 19 124/69 100 98.4 11/07/17 11:03 98.4 Intake and Output 11/07/17 11/08/17 19:00 07:00 Intake Total 1820 ml 1200 ml Balance 1820 ml 1200 ml Intake Oral 720 ml 200 ml IV Total 1100 ml 1000 ml # Voids 2 3 Laboratory Tests 11/08/17 05:40: White Blood Count 6.5, Red Blood Count 3.30L, Hemoglobin 10.3L, Hematocrit 30.4L , Mean Corpuscular Volume 92, Mean Corpuscular Hemoglobin 31.2H, Mean Corpuscular Hemoglobin Concent 33.9, Red Cell Distribution Width 12.2, Platelet Count 175, Mean Platelet Volume 6.0L, Neutrophils (%) (Auto) 69.4, Lymphocytes ( %) (Auto) 18.0L, Monocytes (%) (Auto) 8.5, Eosinophils (%) (Auto) 2.1, Basophils (%) (Auto) 2.0 Height (Feet): 5 Height (Inches): 10.00 Weight (Pounds): 193 General Appearance: WD/WN Neck: non-tender, supple Cardiovascular: normal rate, no JVD Respiratory/Chest: lungs clear Abdomen: soft ANDREA BELLA Nov 08, 2017 08:36
[2017-11-08] MEDS: Docusate 100mg cap ORAL SCH ×3 (09:18→18:00)
[2017-11-08] MEDS: Enoxaparin 40mg Inj SUBQ SCH (09:19)
[2017-11-08] MEDS: celeBREX 200mg Cap **SURGERY PATIENTS ONLY ORAL SCH (09:19)
[2017-11-08 11:44] VITALS: BP 124/74
[2017-11-08 15:56] VITALS: BP 117/62
[2017-11-08] MEDS ORDERED: JANUVIA100 MG ORAL (18:46)
[2017-11-08] MEDS ORDERED: LOVENOX40 MG/0.4 SUBQ (18:47)
[2017-11-08] MEDS ORDERED: NOVOLOG100 UNITS1 (18:48)
[2017-11-08 19:49] VITALS: BP 147/81
[2017-11-08] MEDS ORDERED: D5 1/2NS 1000ml IV ONE (19:59)
--- NOTE | 2017-11-13 13:06 | Diagnostic Imaging Report ---
APPROVED REPORT CPT Code: 28762 Present Symptoms Comments: R/O DVT Past History DVT :Left BILATERAL: Imaging reveals a patent deep venous system bilaterally. There is no evidence of thrombus within the femoral, popliteal or right tibial segments. The greater saphenous veins are also within normal limits. Doppler indicates normal spontaneous flow within these segments. The left calf veins were not well visualied, due to SCD's device.
== END 2017-11-08 20:00 | DRG 470 ==
LOC: SDSOVERFLO 06:41 → 3E 14:18
PROC: 0SR90JA Replacement of Right Hip Joint with Synthetic Substitute, Uncemented, Open Approach (ICD-10-PCS; principal; 2017-11-05 09:30)
DX: M16.11 Unilateral primary osteoarthritis, right hip (principal); I10 Essential (primary) hypertension; E11.9 Type 2 diabetes mellitus without complications; D50.0 Iron deficiency anemia secondary to blood loss (chronic); M25.751 Osteophyte, right hip
CPT/HCPCS: 36415; 72170; 80048; 82962; 85025; 86850; 86900; 86901; 87081; 93970; 94003; 94150; J1815; S0077

== ENCOUNTER 2019-02-03 05:50 | Inpatient (IN) | payer OTHER ==
--- NOTE | 2019-01-29 13:00 | NUR ---
*-* CASE MANAGEMENT NOTES *-* PT HAS A PRE-SCHEDULE TOTAL HIP REPLACEMENT. [facility] IS REQUESTING FOR CM TO UTILIZE LETTER FOR DISCHARGE PLANNING NEEDS. PLEASE ASK CM COORDINATOR FOR FORM.
[2019-02-03] VITALS (17 sets, daily range): BP systolic 105–154; BP diastolic 59–92
[~2019-02-03] VITALS: Ht 177.8 cm; Wt 88.5 kg
[~2019-02-03 05:50] MED LIST changes: +JANUVIA100 MG ORAL; +LOVENOX40 MG/0.4 SUBQ; +MULTIVITAMINS1 EAC2 ORAL; +VITAMIN C1000 M2 PO; +VITAMIN D1000 UNI1 ORAL
[2019-02-03] MEDS ORDERED: Clindamycin 600mg/D5W 50ml IV ONE (06:00)
[2019-02-03] MEDS ORDERED: oxyCONTIN 20mg tab ORAL ONE (06:00)
[2019-02-03] MEDS ORDERED: celeBREX 200mg Cap **SURGERY PATIENTS ONLY ORAL ONE (06:00)
[2019-02-03 06:17] LABS: APPEARANCE,URINE CLEAR; BILIRUBIN, URINE NEGATIVE (NEGATIVE); COLOR,URINE PALE YELLOW; GLUCOSE, URINE (UA) 4+ (NEGATIVE); KETONES,URINE 1+ (NEGATIVE); LEUKOCYTE ESTERASE ,URINE 1+ (NEGATIVE); NITRITE,URINE NEGATIVE (NEGATIVE); PH,URINE 6 (4.5-8.0); PROTEIN,URINE 1+ (NEGATIVE); UROBILINOGEN,URINE NORMAL MG/DL (0.0-1.0)
[2019-02-03] MEDS ORDERED: BALANCE PO (06:55)
[2019-02-03] MEDS ORDERED: fentaNYL 100 mcg/2 mL IV ONE (06:59)
[2019-02-03] MEDS ORDERED: Midazolam 2mg/2ml Inj ONE (06:59)
--- NOTE | 2019-02-03 07:00 | NUR ---
oxycontin was not given-pt states 'she's going to ' if she takes hydrocodone or codeine.pharmacy([facility]) was notified.
[2019-02-03] MEDS ORDERED: Propofol 200mg/20ml IV ONE (07:03)
[2019-02-03] MEDS ORDERED: Lidocaine 1% MPF 10mg/ml 5ml ONE (07:03)
--- NOTE | 2019-02-03 07:08 | Pre-Procedure Note/Attestation ---
Pre-Procedure Note/Attestation Complete Prior to Procedure Planned Procedure: left Procedure Narrative: Left total hip arthroplasty Indications for Procedure Pre-Operative Diagnosis: left hip arthritis Attestation I attest that I discussed the nature of the procedure; its benefits; risks and complications; and alternatives (and the risks and benefits of such alternatives ), prior to the procedure, with the patient (or the patient's legal sales representative public utilities). I attest that, if there was a reasonable possibility of needing a blood transfusion, the patient (or the patient's legal sales representative public utilities) was given the [facility] standardized written summary, pursuant to the James Nusrat Blood Safety Act ([place] Health and Safety Code # 1645, as amended). I attest that I re-evaluated the patient just prior to the surgery and that there has been no change in the patient's H&P, except as documented below: NONE Devonte Harris MD February 03, 2019 07:08
[2019-02-03] MEDS ORDERED: Duramorph PF 5mg/10ml amp ONE (07:11)
[2019-02-03] MEDS ORDERED: Succinylcholine 20mg/ml 10ml vial ONE (07:12)
[2019-02-03] MEDS ORDERED: Zemuron 50mg/5ml Inj IV ONE (07:12)
[2019-02-03] MEDS ORDERED: Bacitracin 50000 Units Vial ONE ×2 (07:18→07:19)
[2019-02-03] MEDS ORDERED: Bupivacaine w/Epi 0.5% 30ml Vial INJ ONE (07:18)
[2019-02-03] MEDS ORDERED: NeoSporin Gu Irrig 1ml Amp IRRIG ONE ×2 (07:18→07:19)
[2019-02-03] MEDS ORDERED: LR 1000ml ONE (07:30)
[2019-02-03] MEDS ORDERED: NS Irrig 1000ml ONE (07:30)
[2019-02-03] MEDS ORDERED: NS Irrig 2000ml IRRIG ONE ×2 (07:30→08:46)
[2019-02-03] MEDS ORDERED: Sterile Water Irrig 1000ml IRRIG ONE (07:30)
[2019-02-03] MEDS ORDERED: Clindamycin 600mg 50 ML IV ONE (07:35)
--- NOTE | 2019-02-03 07:46 | Anethesia Preoperative Eval ---
Anesthesia Pre-op PMH/ROS General Date of Evaluation: February 03, 2019 Time of Evaluation: 07:42 Anesthesiologist: Elsie ASA Score: ASA 2 Mallampati Score Class I : Soft palate, uvula, fauces, pillars visible Class II: Soft palate, uvula, fauces visible Class III: Soft palate, base of uvula visible Class IV: Only hard plate visible Mallampati Classification: Class II Surgeon: Kimberly Diagnosis: L hip DJD Surgical Procedure: L hip arthroplasty Anesthesia History: none Family History: no anesthesia problems Allergies: Coded Allergies: PENICILLINS (Verified Allergy, Intermediate, itching , 11/05/17) HYDROCODONE (Verified Adverse Reaction, Severe, nausea, 11/05/17) TRAMADOL (Verified Adverse Reaction, Severe, nausea, 11/05/17) CODEINE (Verified Adverse Reaction, Intermediate, nausea, 11/05/17) Medications: see eMAR Patient NPO?: Yes NPO Date: February 02, 2019 NPO Time: 2100 Past Medical History Cardiovascular: Reports: HTN; Denies: CAD, AL, valve dz, arrhythmia, other Pulmonary: Denies: asthma, COPD, SOCO, other Gastrointestinal/Genitourinary: Reports: GERD; Denies: CRI, ESRD, other Neurologic/Psychiatric: Denies: dementia, CVA, depression/anxiety, TIA, other Endocrine: Reports: DM - poorly controlled; Denies: hypothyroidism, steroids, other HEENT: Denies: cataract (L), cataract (R), glaucoma, [place] (L), [place] (R), other Hematology/Immune: Denies: anemia, DVT, bleeding disorder, other Musculoskeletal/Integumentary: Reports: DJD; Denies: OA, RA, DDD, edema, other Other: other - overweight PMH Narrative: as above PSxH Narrative: Bilateral knees replacement, R hip arthroplasty, ovarian cyst Anesthesia Pre-op Phys. Exam Physician Exam Last Vital Signs Date Time Temp Pulse Resp B/P (MAP) Pulse Ox O2 Delivery O2 Flow Rate FiO2 02/03/19 07:04 Room Air 02/03/19 06:44 97.0 75 18 142/85 (104) 98 Constitutional: NAD Neurologic: CN 2-12 intact Cardiovascular: RRR, no M/R/G Respiratory: CTA Gastrointestinal: S/NT/ND Airway Exam Mallampati Score: Class II MO: limited Neck: stiff ROM: limited Teeth: missing Dentures: no upper, no lower Anesthesia Pre-op A/P Labs see chart Studies Pre-op Studies: EKG - NSR Risk Assessment & Plan Assessment: ASA 2 Plan: SAB vs GA Status Change Before Surgery: No Pre-Antibiotics Drug: Clindamycin 600 mg. Given Within 1 Hr of Incision: Yes Time Given: 08:32 Rick Zimmerman MD February 03, 2019 07:46
[2019-02-03] MEDS ORDERED: Tranexamic Acid 1,000 MG in NS 65 ML IV ONE (08:00)
[2019-02-03] MEDS ORDERED: LR 1000ml 1,000 ML IVLG SCH (08:50)
[2019-02-03] MEDS ORDERED: Hydromorphone 0.5mg/0.5ml inj IVP PRN (09:00)
[2019-02-03] MEDS ORDERED: Ketorolac 30mg Inj IV PRN (09:00)
[2019-02-03] MEDS ORDERED: DiphenhydrAMINE 50mg/ml Inj IVP PRN (09:00)
[2019-02-03] MEDS ORDERED: Morphine Sulfate 2mg/ml Inj(IV/IM USE ONLY) IVP PRN (09:45)
--- NOTE | 2019-02-03 09:48 | NUR ---
CASE MANAGEMENT:REVIEW 68 YR OLD FEMALE HERE FOR ELECTIVE SURGERY SI: LEFT HIP ARTHRITIS 97.0 75 18 142/85 98% ON RA IS: TO SURGERY FOR: LT TOTAL HIP ARTHROPLASTY : TO MED/SURG 3 EAST POST OP INTERQUAL CRITERIA MET
--- NOTE | 2019-02-03 10:36 | NUR ---
DISCHARGE PLANNING DISCHARGE PLAN IS FOR PATIENT TO DISCHARGE TO SNF IN THE PAST PATIENT WENT TO [facility] SPOKE WITH DR ENGEL'S CYCLE MANAGER, BETO T: [phone] [id number] PER BETO CURRENTLY DOES NOT HAVE APPROVAL FOR SNF BUT HE IS WORKING ON OVER TURNING THE DECISION. ONCE DECISION IS OVERTURNED PATIENT CAN THEN BE REFERRED TO [facility]
--- NOTE | 2019-02-03 11:07 | Brief Operative Note ---
Immediate Post Operative Note Operative Note Chief Complaint: left hip pain Pre-op Diagnosis: left hip arthritis Procedure: left total hip arthroplasty Post-op Diagnosis: same as pre-op Findings: consistent w/pre-op dx studies Surgeon: md henri Trainmaster: linda schilling Anesthesiologist: md kj Anesthesia: general Specimen: yes Complications: none Condition: stable Fluids: ns Estimated Blood Loss: minimal Drains: none Implant(s) used?: Yes - garcia and nephRomina Nevarez February 03, 2019 11:07
--- NOTE | 2019-02-03 11:17 | Immediate Post-Op Evaluation ---
Immediate Post-Op Evalulation Immediate Post-Op Evalulation Procedure: L hip total arthroplasty Date of Evaluation: February 03, 2019 Time of Evaluation: 11:16 IV Fluids: 1800 Blood Products: none Estimated Blood Loss: 300 Urinary Output: 150 Blood Pressure Systolic: 152 Blood Pressure Diastolic: 85 Pulse Rate: 78 Respiratory Rate: 20 O2 Sat by Pulse Oximetry: 99 Temperature (Fahrenheit): 97.6 Pain Score (1-10): 1 Nausea: No Vomiting: No Complications none Patient Status: reacts, patent, none Hydration Status: adequate Rick Zimmerman MD February 03, 2019 11:17
[2019-02-03] MEDS ORDERED: Insulin Human Regular 100units/ml 3ml SUBQ SCH (11:30)
--- NOTE | 2019-02-03 11:30 | NUR ---
UNABLE TO SCAN NOVOLIN R AT THIS TIME . GIVEN 6 u sq BIJAL
[2019-02-03] MEDS ORDERED: Insulin Human Regular 100units/ml 3ml ONE (11:34)
--- NOTE | 2019-02-03 11:46 | Diagnostic Imaging Report ---
Indication: Intraoperative imaging left hip replacement Findings: Single AP view of the pelvis was performed. Jackson catheter noted. Left total hip arthroplasty noted on the single image. Right total hip arthroplasty from a previous surgery also noted. No acute fracture is identified. Alignment difficult to assess on the single view which was obtained in a limited fashion. IMPRESSION: Intraoperative imaging
--- NOTE | 2019-02-03 12:35 | NUR ---
NURSE NOTES: PATIENT RECEIVED FROM PACU ON BED WITH FAMILY AT BEDSIDE. REPORT RECEIVED FROM JORGE DIRECTOR OF PULMONARY UNIT AND TOÑA DIRECTOR OF PULMONARY UNIT. SURGICAL SITE ASSESSED. RLE SCD ON . HEAD TO TOE ASSESSMENT COMPLETED. DENIES PAIN AT THIS TIME. HAS SLIGHT MOVEMENT T LLE. DISCUSSED WITH PATIENT AND FAMILY PLAN OF CARE FOR THE DAY. VERBALIZED UNDERSTANDING. ORIENTED TO ROOM. CALL LIGHT WITHIN REACH. BED IN LOW AND LOCKED POSITION.
--- NOTE | 2019-02-03 13:35 | Diagnostic Imaging Report ---
Indication: Intraoperative imaging left hip replacement Findings: Single AP view of the pelvis was performed. A very limited portable frontal x-ray of the left hip showing left total hip replacement in progress. IMPRESSION: Intraoperative imaging
[2019-02-03] MEDS ORDERED: D5 1/2NS w/KCl 20mEq 1,000 ML IV SCH (14:00)
[2019-02-03] MEDS: Clindamycin 600mg 50 ML IV SCH ×2 (15:12→20:54)
--- NOTE | 2019-02-03 15:48 | NUR ---
P.T NOTE : P.T EVALUATION COMPLETED AND TREATMENT INITIATED POD#0 PER TKR PROTOCOL. PLEASE REFER TO P.T EVALUATION FOR CURRENT FUNCTIONAL STATUS. PATIENT RECEIVED IN SUPINE POSITION WITH SISTER IN GNOSTICISM PRESENT IN THE ROOM. EDUCATION ON HIP PRECAUTIONS AND IMPORTANCE OF FUNCTIONAL ACTIVITIES POST OP WERE PROVIDED HOWEVER PATIENT WAS TOO LETHARGIC TO PARTICIPATE AND EVEN TO CARRY ON CONVERSATION THEREFORE PARTICIPATION WITH FUNCTIONAL MOBILITY WAS LIMITED: PATIENT REQUIRED MOD/MAX A X 2 AND CONSTANT VERBAL AND TACTILE CUES TO COMPLETE SUPINE TO/FROM SIT AND SIT TO/FROM STAND TRANSITIONS. PATIENT WAS ABLE TO AMBULATE 3-4 TINY STEPS WITH MOD A X 2 USING THE FWW: NOTED BUCKLING EPISODES ON THE L KNEE AT MID STANCE: DISTANCE WAS LIMITED DUE TO SAFETY ISSUE PATIENT BEING TOO LETHARGIC. VITALS WERE STALE ALL THROUGHOUT P.T SESSION. WILL PROGRESS ACTIVITIES TOLERATED. RECOMMEND SNF FOR SHORT TERM REHAB AT D/C. WOULD REQUIRE 3 IN 1 COMMODE AND FWW IN THE ROOM. THANK YOU FOR THIS REFERRAL.
--- NOTE | 2019-02-03 16:30 | Operative Note - Dictated ---
DATE OF OPERATION: 02/03/2019 PREOPERATIVE DIAGNOSIS: Left hip end-stage arthritis. POSTOPERATIVE DIAGNOSIS: Left hip end-stage arthritis. PROCEDURE: Left total hip arthroplasty using Barajas and Nephew system, size 3 standard offset Anthology vein stem, size 52 mm R3 3-hole acetabular component with 2 dome screws, ultra cross-linked polyethylene with 20 degree lip with a 36 mm cobalt chromium head all press-fit. SURGEON: Devonte Harris M.D. GAMBLING MONITOR: Romina Faria PA-C. ANESTHESIOLOGIST: Rick Zimmerman M.D. ANESTHESIA: General LMA anesthesia. ESTIMATED BLOOD LOSS: Less than 20 mL. COMPLICATIONS: None. BRIEF HISTORY: The patient is a very pleasant 68-year-old female who has had ongoing arthritis of the left hip. She had similar problems with her bilateral knees and right hip and she underwent joint replacement on those 3 other body parts. She failed nonoperative treatment with respect to the left hip and after full discussion of risks and benefits of the surgery and complications associated with it including infection, bleeding, neurovascular complication, possibility of leg length discrepancy, possibility of femur fracture during surgery, possible infection requiring resection arthroplasty, possibility of PEs even in view of DVT prophylaxis, as well as other complications that may arise including dislocation, she opted for surgical treatment as described above. OPERATIVE PROCEDURE: The patient was brought to the operating table and was placed supine. All pressure points well padded. Spinal anesthesia was induced and LMA anesthesia was applied. The patient was placed in right lateral decubitus position with the left hip up. All pressure points well padded. The left leg was prepped and draped in usual sterile fashion. Time-out was performed and tranexamic acid was given and preop antibiotics were given. A standard posterolateral approach to the hip was undertaken. The incision was taken through subcutaneous tissue. The gluteal fascia was then opened. The tensor fascia was opened. Charnley retractors were placed in and the hip was internally rotated and the short external rotators were released and tagged for later repair. At this point, the capsule was T'd. There was a large osteophyte on the acetabulum, which was resected. At this point, the hip was dislocated and a standard femoral neck cut was performed approximately a cm proximal to the lesser trochanter. Once this was completed, the anterior acetabular retractors and inferior retractors were placed in. Two Steinmann pins were placed, 1 superiorly and 1 posteriorly to get better visualization of the acetabulum. Once this was completed, sequential reaming was performed starting with a 45 mm reamer to medialize and subsequently reaming up to 52 mm reamer, which provided excellent bleeding bone circumferentially. Once this was completed, the 52 mm trial was applied and in 35 degrees anteversion and 45 degrees inclination, this provided excellent stability. Subsequently, a 52 mm R3 cup was then opened and was malleted in with 35 degrees anteversion and 45 degrees of inclination into the acetabulum. This provided excellent initial stability of the cup. Secondary stability was obtained with using 2 additional dome screws. Once this was completed, the acetabulum appeared to be in excellent position. The wounds were thoroughly irrigated using Simpulse irrigation and a 20-degree lip acetabular liner was then placed in and locked in without any complications. Once this was completed, the care was given to the femoral component. The Steinmann pins and retractors were removed. The Jammie retractor was placed in. The box toe cementer was used to lateralize the starting point and a canal finder was placed in. Sequential broaching was performed starting from size [address] up to size 3. This provided excellent axial and rotational stability. A standard offset neck was used and a 36 mm head was applied and the hip was reduced. Intraoperative x-rays were obtained and the position of the implants were good and as expected, the leg length appeared to be equal. Stability was checked at 0, 30 degrees, 45 degrees, and 90 degrees of flexion all the way up to 75 to 80 degrees internal rotation with excellent stability. The anterior stability was excellent. Range of motion was checked and was good flexion and good extension. The leg lengths were checked as measured by the knee and the foot and there appeared to be equal. At this point, the trial components were removed. The femoral component and acetabular component were thoroughly irrigated using Simpulse irrigation. At this point, a size 3 Anthology stem was then applied and placed in without any complication. This was placed in about 15 degrees anteversion. Once this was completed, the Lorenzo taper was dried and a 36 mm cobalt chromium +0 neck was applied and was locked in without any complication. Once this was completed, the hip was placed through range of motion, stability was checked. Range of motion was excellent. Stability was excellent as described previously. The leg lengths were equal. At this point, all wounds were thoroughly irrigated again using Simpulse irrigation. The short external rotators were closed using drill holes. The tensor fascia was closed using #1 Vicryl suture. Subcutaneous tissue was closed using 2-0 Vicryl suture. Skin was closed using 3-0 Monocryl suture. Dermabond was applied and the patient tolerated the procedure well without complications. The patient was taken to the recovery in stable condition. All lap counts and instrument counts were correct. Devonte Richard Harris DR: SHAHEEN JOB#: [id number] CC:
[2019-02-03] MEDS: Docusate 100mg cap ORAL SCH (18:00)
--- NOTE | 2019-02-03 19:33 | NUR ---
NURSE NOTES: Pt is in bed, calm, pt is talking to friends who are by bedside. No acute distress noted. S/p left total hip Sx. Dressing dry and intact. Pt is on 2l n/c, pt on clear liq diet. Incentive spherometer by bedside, encouraged to use it. Abductor pillow in place. Pt doesn't complain of any pain. D5 1/2 NS with 20mEq kcl running at 75ml/hr. Jackson cath draining yellow urine. Bed locked low in position,side rails up and call light within reach. Pt will be monitored.
[2019-02-03] MEDS: NovoLOG Insulin Flexpen SUBQ SCH (20:58)
--- NOTE | 2019-02-03 22:49 | General Progress Note ---
Assessment/Plan Status Narrative s/p total joint arthroplasty perioperative antibiotic prophyalxis given diabetes border line hyeprtenison Assessment/Plan: follwo cbc physicla therpay occupational therpay monitor cbc hisotyrf diabetes accu check sliding scale monitor blood sugar willfollow Subjective Date patient seen: February 03, 2019 Time patient seen: 22:47 Allergies: Coded Allergies: PENICILLINS (Verified Allergy, Intermediate, itching , 11/05/17) HYDROCODONE (Verified Adverse Reaction, Severe, nausea, 11/05/17) TRAMADOL (Verified Adverse Reaction, Severe, nausea, 11/05/17) CODEINE (Verified Adverse Reaction, Intermediate, nausea, 11/05/17) Subjective sleeping comfortable no feve rno chills has some pain Objective Last 24 Hour Vital Signs Date Time Temp Pulse Resp B/P (MAP) Pulse Ox O2 Delivery O2 Flow Rate FiO2 02/03/19 20:00 98.1 69 20 107/64 (78) 93 02/03/19 16:00 97.7 61 16 108/71 (83) 100 02/03/19 14:55 97.4 67 16 105/63 (77) 100 02/03/19 14:55 97.4 67 16 105/63 (77) 100 02/03/19 13:55 97.2 73 15 106/61 (76) 100 02/03/19 12:55 97.1 62 16 106/59 (75) 100 02/03/19 12:25 97.2 70 16 137/81 (99) 100 02/03/19 12:25 Nasal Cannula 2.0 02/03/19 12:20 97.6 66 18 131/82 100 Nasal Cannula 3 02/03/19 12:10 64 17 125/79 100 Nasal Cannula 3 02/03/19 12:00 66 16 131/77 100 Nasal Cannula 3 02/03/19 11:55 66 18 127/80 100 Nasal Cannula 3 02/03/19 11:45 69 18 134/75 100 Nasal Cannula 3 02/03/19 11:35 67 13 132/75 100 Nasal Cannula 3 02/03/19 11:30 70 14 135/82 100 Simple Mask 6 02/03/19 11:25 77 16 132/75 100 Simple Mask 6 02/03/19 11:20 81 15 143/77 100 Simple Mask 6 02/03/19 11:17 78 20 99 02/03/19 11:16 97.4 84 14 154/92 100 Simple Mask 6 02/03/19 07:04 Room Air 02/03/19 06:44 97.0 75 18 142/85 (104) 98 Intake and Output 02/02/19 02/03/19 19:00 07:00 # Voids 1 Laboratory Tests 02/03/19 06:00: Urine Color Pale yellow, Urine Appearance Clear, Urine pH 6, Urine Specific Union 1.015, Urine Protein 1+H, Urine Glucose (UA) 4+H, Urine Ketones 1+H, Urine Blood 2+H, Urine Nitrite Negative, Urine Bilirubin Negative, Urine Urobilinogen Normal, Urine Leukocyte Esterase 1+H, Urine RBC 5-10H, Urine WBC 5- 10H, Urine Squamous Epithelial Cells Occasional, Urine Bacteria Few Height (Feet): 5 Height (Inches): 10.00 Weight (Pounds): 190 General Appearance: WD/WN Neck: other - no jvd Cardiovascular: normal rate Respiratory/Chest: lungs clear Abdomen: non tender, soft Extremities: other Gavin Beaulieu MD February 03, 2019 22:49
--- NOTE | 2019-02-03 23:57 | NUR ---
NURSE NOTES: Doctor Christofer is notified of the low urine output. Dr. Christofer Alonso ordered to increase IV fluid D5 1/2 NS with 20mEq KCl to 125ml/hr.
[2019-02-04] VITALS: BP 112/70
[2019-02-04] MEDS ORDERED: D5 1/2NS w/KCl 20mEq 1,000 ML IV SCH
[2019-02-04] MEDS: Clindamycin 600mg 50 ML IV SCH ×2 (02:08→08:24)
--- NOTE | 2019-02-04 02:14 | NUR ---
NURSE NOTES: Pt is in bed, asleep. No acute distress noted. Respiration 20. Pt will be monitored.
--- NOTE | 2019-02-04 03:26 | NUR ---
NURSE NOTES: Pt is in bed, awake an alert. No acute distress noted. Left hip dressing dry and intact. Pt able to wiggle left toes. Vitas stable.
[2019-02-04 04:00] VITALS: BP 107/57
[2019-02-04] MEDS: NovoLOG Insulin Flexpen SUBQ SCH ×4 (06:15→21:32)
--- NOTE | 2019-02-04 07:00 | NUR ---
NURSE NOTES: Pt is awake and alert. Using incentive spectrometer. Jackson cath output 400ml during this shift. No complains of pain.
--- NOTE | 2019-02-04 07:20 | NUR ---
HAND-OFF: Report given to Dayo Castillo RN.Informed to monitor urine output closely.
--- NOTE | 2019-02-04 07:25 | NUR ---
NURSE NOTES: Patient sitting in bed eating breakfast. No complain of pain or distress at this time. Surgical dressing intact and dry. Jackson catheter patent and draining well. IV dressing intact and dry. Bed lowest position. Call light within reach. Will continue to monitor.
--- NOTE | 2019-02-04 07:52 | NUR ---
CASE MANAGEMENT:REVIEW 02/04/19 SI: POD #1 S/P LT TOTAL HIP ARTHROPLASTY 99.8 89 20 107/57 99% ON 2L/NC IS: IV CLINDAMYCIN Q6HRS IVF@75/HR LOVENOX SQ QD CELEBREX PO QD JANUVIA PO QAM SS INSULIN AC+HS IRON PO TID : MED/SURG STATUS 3 EAST DCP: FROM HOME ~ REFERRED TO [facility]
--- NOTE | 2019-02-04 07:58 | NUR ---
DISCHARGE PLANNING DISCHARGE PLAN IS FOR PATIENT TO DISCHARGE TO SNF IN THE PAST PATIENT WAS DISCHARGED TO [facility] T: [phone] ENGEL'S DRIVER RETRAINING INSTRUCTOR, BETO T: [phone] [id number] PER BETO,CURRENTLY PATIENT DOES NOT HAVE APPROVAL FOR SNF BUT HE IS WORKING ON OVER TURNING THE DECISION. *CREDENTIALING ANALYST HAS FAXED CLINICALS TO [facility] *DISCHARGE PLAN IS FOR SATURDAY OR SATURDAY
[2019-02-04 08:00] VITALS: BP 106/58
[2019-02-04 08:03] LABS: BASOPHILS % (AUTO) 0.8 % (0.0-2.0); EOSINOPHILS % (AUTO) 1.1 % (0.0-3.0); HEMATOCRIT 33.1 % (37.0-47.0); HEMOGLOBIN 10.9 G/DL (12.0-16.0); LYMPHOCYTES % (AUTO) 26.7 % (20.0-45.0); MEAN CORPUSCULAR VOLUME 91 FL (80-99); NEUTROPHILS % (AUTO) 66.4 % (45.0-75.0); PLATELET COUNT 170 K/UL (150-450); RED BLOOD COUNT 3.63 M/UL (4.20-5.40); RED CELL DISTRIBUTION WIDTH 12.4 % (11.6-14.8); WHITE BLOOD COUNT 4.7 K/UL (4.8-10.8)
[2019-02-04] MEDS: D5 1/2NS w/KCl 20mEq 1,000 ML IV SCH ×2 (08:25→21:04)
[2019-02-04] MEDS: celeBREX 200mg Cap **SURGERY PATIENTS ONLY ORAL SCH (08:26)
[2019-02-04] MEDS: Docusate 100mg cap ORAL SCH ×3 (08:26→17:11)
[2019-02-04 08:27] LABS: ANION GAP 7 mmol/L (5-15); BLOOD UREA NITROGEN 11 mg/dL (7-18); CALCIUM 8.4 MG/DL (8.5-10.1); CARBON DIOXIDE 25 MMOL/L (21-32); CHLORIDE 106 MMOL/L (98-107); CREATININE 1.2 MG/DL (0.55-1.30); SODIUM 138 MMOL/L (136-145)
[2019-02-04] MEDS: Enoxaparin 40mg Inj SUBQ SCH (08:32)
--- NOTE | 2019-02-04 08:47 | Orthopedic Progress Note ---
Orthopedic - Progress Note Subjective Symptoms: c/o post-op hip pain Objective Laboratory Tests Test 02/04/19 06:59 White Blood Count 4.7 K/UL (4.8-10.8) L Red Blood Count 3.63 M/UL (4.20-5.40) L Hemoglobin 10.9 G/DL (12.0-16.0) L Hematocrit 33.1 % (37.0-47.0) L Mean Corpuscular Volume 91 FL (80-99) Mean Corpuscular Hemoglobin 30.0 PG (27.0-31.0) Mean Corpuscular Hemoglobin Concent 33.0 G/DL (32.0-36.0) Red Cell Distribution Width 12.4 % (11.6-14.8) Platelet Count 170 K/UL (150-450) Mean Platelet Volume 5.0 FL (6.5-10.1) L Neutrophils (%) (Auto) 66.4 % (45.0-75.0) Lymphocytes (%) (Auto) 26.7 % (20.0-45.0) Monocytes (%) (Auto) 5.0 % (1.0-10.0) Eosinophils (%) (Auto) 1.1 % (0.0-3.0) Basophils (%) (Auto) 0.8 % (0.0-2.0) Sodium Level 138 MMOL/L (136-145) Potassium Level 4.0 MMOL/L (3.5-5.1) Chloride Level 106 MMOL/L (98-107) Carbon Dioxide Level 25 MMOL/L (21-32) Anion Gap 7 mmol/L (5-15) Blood Urea Nitrogen 11 mg/dL (7-18) Creatinine 1.2 MG/DL (0.55-1.30) Estimat Glomerular Filtration Rate 53.9 mL/min (>60) Glucose Level 225 MG/DL (74-106) H Calcium Level 8.4 MG/DL (8.5-10.1) L Last 24 Hour Vital Signs Date Time Temp Pulse Resp B/P (MAP) Pulse Ox O2 Delivery O2 Flow Rate FiO2 02/04/19 08:00 97.7 86 20 106/58 (74) 95 02/04/19 04:00 99.8 89 20 107/57 (74) 99 02/04/19 00:00 99.5 86 18 112/70 (84) 99 02/03/19 21:00 Nasal Cannula 2.0 02/03/19 20:00 98.1 69 20 107/64 (78) 93 02/03/19 16:00 97.7 61 16 108/71 (83) 100 02/03/19 14:55 97.4 67 16 105/63 (77) 100 02/03/19 14:55 97.4 67 16 105/63 (77) 100 02/03/19 13:55 97.2 73 15 106/61 (76) 100 02/03/19 12:55 97.1 62 16 106/59 (75) 100 02/03/19 12:25 97.2 70 16 137/81 (99) 100 02/03/19 12:25 Nasal Cannula 2.0 02/03/19 12:20 97.6 66 18 131/82 100 Nasal Cannula 3 02/03/19 12:10 64 17 125/79 100 Nasal Cannula 3 02/03/19 12:00 66 16 131/77 100 Nasal Cannula 3 02/03/19 11:55 66 18 127/80 100 Nasal Cannula 3 02/03/19 11:45 69 18 134/75 100 Nasal Cannula 3 02/03/19 11:35 67 13 132/75 100 Nasal Cannula 3 02/03/19 11:30 70 14 135/82 100 Simple Mask 6 02/03/19 11:25 77 16 132/75 100 Simple Mask 6 02/03/19 11:20 81 15 143/77 100 Simple Mask 6 02/03/19 11:17 78 20 99 02/03/19 11:16 97.4 84 14 154/92 100 Simple Mask 6 Intake and Output 02/03/19 02/04/19 19:00 07:00 Intake Total 2690 ml 600 ml Output Total 550 ml 400 ml Balance 2140 ml 200 ml Intake Oral 240 ml IV Total 2450 ml 600 ml Output Urine Total 250 ml 400 ml Estimated Blood Loss 300 ml Laboratory Tests Test 02/04/19 06:59 White Blood Count 4.7 K/UL (4.8-10.8) L Red Blood Count 3.63 M/UL (4.20-5.40) L Hemoglobin 10.9 G/DL (12.0-16.0) L Hematocrit 33.1 % (37.0-47.0) L Mean Corpuscular Volume 91 FL (80-99) Mean Corpuscular Hemoglobin 30.0 PG (27.0-31.0) Mean Corpuscular Hemoglobin Concent 33.0 G/DL (32.0-36.0) Red Cell Distribution Width 12.4 % (11.6-14.8) Platelet Count 170 K/UL (150-450) Mean Platelet Volume 5.0 FL (6.5-10.1) L Neutrophils (%) (Auto) 66.4 % (45.0-75.0) Lymphocytes (%) (Auto) 26.7 % (20.0-45.0) Monocytes (%) (Auto) 5.0 % (1.0-10.0) Eosinophils (%) (Auto) 1.1 % (0.0-3.0) Basophils (%) (Auto) 0.8 % (0.0-2.0) Sodium Level 138 MMOL/L (136-145) Potassium Level 4.0 MMOL/L (3.5-5.1) Chloride Level 106 MMOL/L (98-107) Carbon Dioxide Level 25 MMOL/L (21-32) Anion Gap 7 mmol/L (5-15) Blood Urea Nitrogen 11 mg/dL (7-18) Creatinine 1.2 MG/DL (0.55-1.30) Estimat Glomerular Filtration Rate 53.9 mL/min (>60) Glucose Level 225 MG/DL (74-106) H Calcium Level 8.4 MG/DL (8.5-10.1) L Wound: clean, dry, intact Drains: none Neuro Status: normal Vascular Status: normal Additional Comments Xray reviewed: excellent Assessment Post-op Diagnosis POD 1 Procedure Performed left total hip arthroplasty Plan Plan: PT, pain management, discharge plan - SNF saturday, other - Pt has hx of DVT. Lovenox for DVT ppx Romina Faria February 04, 2019 08:47
--- NOTE | 2019-02-04 11:48 | 48 Hour Post Anesthesia Eval ---
Post Anesthesia Evaluation Procedure: L hip total arthroplasty Date of Evaluation: February 04, 2019 Time of Evaluation: 07:03 Blood Pressure Systolic: 102 0: 57 Pulse Rate: 89 Respiratory Rate: 20 Temperature (Fahrenheit): 99.8 O2 Sat by Pulse Oximetry: 99 Airway: patent Nausea: No Vomiting: No Pain Intensity: 3 Hydration Status: adequate Cardiopulmonary Status: Stable Mental Status/LOC: patient returned to baseline Follow-up Care/Observations: 0 Post-Anesthesia Complications: 0 Follow-up care needed: N/A Reggie Alfaro MD February 04, 2019 11:48
[2019-02-04 12:00] VITALS: BP 110/60
[2019-02-04 16:00] VITALS: BP 129/72
--- NOTE | 2019-02-04 17:30 | NUR ---
NURSE NOTES: Patient requested to remove Jackson catheter tomorrow. Spoke to Bienvenido DELACRUZ regarding Jackson catheter and new order received. Order read back and carried out.
--- NOTE | 2019-02-04 19:30 | NUR ---
HAND-OFF: Report given to Angela SANTORO. Patient in stable condition.
[2019-02-04 20:00] VITALS: BP 129/65
--- NOTE | 2019-02-04 20:00 | NUR ---
NURSE NOTES: RECEIVED PATIENT LYING IN BED, AWAKE, ALERT/ORIENTED X4, VERBALLY RESPONSIVE, WHEN QUESTIONED ABOUT PAIN, SHE STATED "I'M OKAY", NO FACIAL GRIMACING NOTED. S/P RIGHT TOTAL HIP ARTHROPLASTY, NOTED WITH FOAM TAPE INTACT/ICE PACK. ABDOMEN, NOTED WITH SURGICAL SCAR TO RIGHT KNEE. IV INTACT TO RIGHT HAND, NO REDNESS NOTED, FLUSHED WITHOUT DIFFICULTY, WILL CONTINUE TO MONITOR, IV FLUIDS D51/2 NS 20K 75ML PER HOUR. SCD INTACT TO LEFT LOWER EXTREMITY/ABDUCTION PILLOW IN PLACE. NO REPORT OF GI DISCOMFORT, CHAVEZ CATHETER INTACT, PATENT, DRAINING YELLOW URINE VIA GRAVITY, WILL D/C 02/05/19 PER MD ORDER. SIDE RAILS UP X3/BED IN LOWEST POSITION FOR SAFETY, CALL LIGHT WITHIN REACH. NAD.
--- NOTE | 2019-02-04 21:30 | NUR ---
NURSE NOTES: MONITORED BLOOD GLUCOSE LEVEL VIA GLUCOMETER WITH RESULT 170MG/DL, ASSESSED FOR SIGNS AND SYMPTOMS OF HYPERGLYCEMIA, NONE NOTED, MEDICATED PATIENT WITH 4 UNITS NOVOLOG PER SLIDING SCALE, TOLERATED WELL, NO ADVERSE REACTION NOTED AFTER 15 MINUTES.
--- NOTE | 2019-02-04 23:09 | General Progress Note ---
Assessment/Plan Status Narrative S/P THR HISOTORYU OF DVT DIABETES ANEMIA Assessment/Plan: PT OT DVT PROPHYALXIS PAINCONTROL STOP D5 IVF MONITOR BLOOD SUGAR VENOUS DOUPLEX BOTH LEG. Subjective Date patient seen: February 04, 2019 Time patient seen: 23:08 Constitutional: Reports: no symptoms HEENT: Reports: no symptoms Cardiovascular: Reports: no symptoms Respiratory: Reports: no symptoms Allergies: Coded Allergies: PENICILLINS (Verified Allergy, Intermediate, itching , 11/05/17) HYDROCODONE (Verified Adverse Reaction, Severe, nausea, 11/05/17) TRAMADOL (Verified Adverse Reaction, Severe, nausea, 11/05/17) CODEINE (Verified Adverse Reaction, Intermediate, nausea, 11/05/17) Subjective getting d5 no fevernochills ain Objective Last 24 Hour Vital Signs Date Time Temp Pulse Resp B/P (MAP) Pulse Ox O2 Delivery O2 Flow Rate FiO2 02/04/19 21:00 Room Air 02/04/19 20:00 97.8 79 19 129/65 (86) 98 02/04/19 16:00 99.1 89 20 129/72 (91) 100 02/04/19 12:00 98.2 87 20 110/60 (77) 98 02/04/19 11:48 89 20 99 02/04/19 09:00 Room Air 02/04/19 08:00 97.7 86 20 106/58 (74) 95 02/04/19 04:00 99.8 89 20 107/57 (74) 99 02/04/19 00:00 99.5 86 18 112/70 (84) 99 Intake and Output 02/03/19 02/04/19 19:00 07:00 Intake Total 2690 ml 600 ml Output Total 550 ml 400 ml Balance 2140 ml 200 ml Intake Oral 240 ml IV Total 2450 ml 600 ml Output Urine Total 250 ml 400 ml Estimated Blood Loss 300 ml Laboratory Tests 02/04/19 06:59: White Blood Count 4.7L, Red Blood Count 3.63L, Hemoglobin 10.9L, Hematocrit 33.1L, Mean Corpuscular Volume 91, Mean Corpuscular Hemoglobin 30.0, Mean Corpuscular Hemoglobin Concent 33.0, Red Cell Distribution Width 12.4, Platelet Count 170, Mean Platelet Volume 5.0L, Neutrophils (%) (Auto) 66.4, Lymphocytes ( %) (Auto) 26.7, Monocytes (%) (Auto) 5.0, Eosinophils (%) (Auto) 1.1, Basophils (%) (Auto) 0.8, Sodium Level 138, Potassium Level 4.0, Chloride Level 106, Carbon Dioxide Level 25, Anion Gap 7, Blood Urea Nitrogen 11, Creatinine 1.2, Estimat Glomerular Filtration Rate 53.9, Glucose Level 225H, Calcium Level 8.4L Height (Feet): 5 Height (Inches): 10.00 Weight (Pounds): 195 General Appearance: WD/WN Neck: supple Cardiovascular: normal rate, regular rhythm, no JVD Respiratory/Chest: lungs clear Abdomen: soft Gavin Beaulieu MD February 04, 2019 23:09
[2019-02-05] VITALS: BP 131/61
--- NOTE | 2019-02-05 00:25 | NUR ---
NURSE NOTES: Received report from YVAN Miller. Patient asleep, visitor at bedside. Jackson catheter patent. IVF were discontinued per MD request. Will continue to monitor.
--- NOTE | 2019-02-05 00:30 | NUR ---
NURSE NOTES: RESTING COMFORTABLY, NO SIGNS AND SYMPTOMS OF DISTRESS.
--- NOTE | 2019-02-05 00:31 | NUR ---
HAND-OFF: Report given to CLINT SEGOVIA.
--- NOTE | 2019-02-05 00:35 | NUR ---
NURSE NOTES: Left hip dressing intact, adductor pillow in place. Jackson catheter draining well. Magi PO fluids. No s/s distress.
--- NOTE | 2019-02-05 03:22 | NUR ---
NURSE NOTES: Patient complains of pain 05/26. Placed call to Dr Beaulieu, received one time order for Mobic 7.5 mg PO. Order placed and medication was given. Icepack to left hip. Will continue to monitor.
[2019-02-05 04:00] VITALS: BP 145/85
[2019-02-05] MEDS: NovoLOG Insulin Flexpen SUBQ SCH ×4 (06:15→21:13)
--- NOTE | 2019-02-05 07:10 | NUR ---
HAND-OFF: Report given to CLINT Oshea.
[2019-02-05 07:15] LABS: BASOPHILS % (AUTO) 0.7 % (0.0-2.0); HEMATOCRIT 36.8 % (37.0-47.0); HEMOGLOBIN 12.3 G/DL (12.0-16.0); LYMPHOCYTES % (AUTO) 20.4 % (20.0-45.0); MEAN CORPUSCULAR VOLUME 91 FL (80-99); MONOCYTES % (AUTO) 7.5 % (1.0-10.0); NEUTROPHILS % (AUTO) 70.4 % (45.0-75.0); PLATELET COUNT 194 K/UL (150-450); RED BLOOD COUNT 4.04 M/UL (4.20-5.40); RED CELL DISTRIBUTION WIDTH 12.3 % (11.6-14.8); WHITE BLOOD COUNT 6.9 K/UL (4.8-10.8)
--- NOTE | 2019-02-05 07:15 | NUR ---
NURSE NOTES: Patient lying in bed awake. No complain of pain or distress at this time. Surgical dressing intact and dry. IV dressing intact and dry. Jackson catheter patent and draining well. Bed lowest position. Call light within reach. Will continue to monitor.
[2019-02-05 08:00] VITALS: BP 148/82
--- NOTE | 2019-02-05 08:00 | Orthopedic Progress Note ---
Orthopedic - Progress Note Subjective Symptoms: c/o post-op hip pain Objective Last 24 Hour Vital Signs Date Time Temp Pulse Resp B/P (MAP) Pulse Ox O2 Delivery O2 Flow Rate FiO2 02/05/19 04:00 98.5 86 17 145/85 (105) 100 02/05/19 00:00 98.0 75 17 131/61 (84) 98 02/04/19 21:00 Room Air 02/04/19 20:00 97.8 79 19 129/65 (86) 98 02/04/19 16:00 99.1 89 20 129/72 (91) 100 02/04/19 12:00 98.2 87 20 110/60 (77) 98 02/04/19 11:48 89 20 99 02/04/19 09:00 Room Air 02/04/19 08:00 97.7 86 20 106/58 (74) 95 Intake and Output 02/04/19 02/05/19 18:59 06:59 Intake Total 365 ml 1170 ml Output Total 1500 ml Balance 365 ml -330 ml Intake Oral 240 ml 720 ml IV Total 125 ml 450 ml Output Urine Total 1500 ml # Voids 2 Laboratory Tests Test 02/05/19 06:00 White Blood Count 6.9 K/UL (4.8-10.8) Red Blood Count 4.04 M/UL (4.20-5.40) L Hemoglobin 12.3 G/DL (12.0-16.0) Hematocrit 36.8 % (37.0-47.0) L Mean Corpuscular Volume 91 FL (80-99) Mean Corpuscular Hemoglobin 30.4 PG (27.0-31.0) Mean Corpuscular Hemoglobin Concent 33.3 G/DL (32.0-36.0) Red Cell Distribution Width 12.3 % (11.6-14.8) Platelet Count 194 K/UL (150-450) Mean Platelet Volume 5.2 FL (6.5-10.1) L Neutrophils (%) (Auto) 70.4 % (45.0-75.0) Lymphocytes (%) (Auto) 20.4 % (20.0-45.0) Monocytes (%) (Auto) 7.5 % (1.0-10.0) Eosinophils (%) (Auto) 1.0 % (0.0-3.0) Basophils (%) (Auto) 0.7 % (0.0-2.0) Wound: clean, dry Drains: hemovac Neuro Status: normal Assessment Post-op Diagnosis s/p left ANIA doing well Plan Plan: PT, discharge plan Additional Comments continue ambulation Devonte Harris MD February 05, 2019 08:00
[2019-02-05] MEDS: Docusate 100mg cap ORAL SCH ×3 (08:36→17:47)
[2019-02-05] MEDS: celeBREX 200mg Cap **SURGERY PATIENTS ONLY ORAL SCH (08:37)
[2019-02-05] MEDS: Enoxaparin 40mg Inj SUBQ SCH (08:41)
--- NOTE | 2019-02-05 10:10 | NUR ---
NURSE NOTES: Removed Jackson catheter 400 ml yellow urine. No complain of pain or discomfort at this time. Will continue to monitor.
[2019-02-05 12:00] VITALS: BP 153/78
--- NOTE | 2019-02-05 13:02 | NUR ---
CASE MANAGEMENT:REVIEW 02/05/19 SI: POD #2 S/P LT TOTAL HIP ARTHROPLASTY 97.7 84 19 148/82 97% ON RA IS: LOVENOX SQ QD CELEBREX PO QD JANUVIA PO QAM SS INSULIN AC+HS IRON PO TID : MED/SURG STATUS 3 EAST DCP: FROM HOME ~ REFERRED TO [facility]
--- NOTE | 2019-02-05 13:11 | NUR ---
DISCHARGE PLAN ORIGINAL DISCHARGE PLAN HAS CHANGED OF TODAY PATIENT WAS INITIALLY REFERRED TO [facility] TODAY [facility] COORDIN[facility] ~ DANA T: [phone] DR ENGEL'S RN UTILIZATION MANAGEMENT UM ~ BETO T; [phone] [id number] DANA WILL COORDINATE WITH BETO TO OBTAIN AUTHORIZATION FOR ACUTE REHAB
--- NOTE | 2019-02-05 13:50 | NUR ---
NURSE NOTES: Patient voided yellow urine. No complain of pain or discomfort at this time. Patient tolerated activity well. Will continue to monitor.
[2019-02-05 16:00] VITALS: BP 151/84
--- NOTE | 2019-02-05 17:50 | NUR ---
NURSE NOTES: Changed surgical dressing as ordered. No signs and symptoms of bleeding or infection. Patient tolerated procedure well. Will continue to monitor.
--- NOTE | 2019-02-05 18:33 | General Progress Note ---
Assessment/Plan Assessment/Plan: PT OT dvt prophylaxis follow closleyu monitor no [facility] Subjective Date patient seen: February 05, 2019 Time patient seen: 18:32 Constitutional: Reports: no symptoms HEENT: Reports: no symptoms Respiratory: Reports: no symptoms Allergies: Coded Allergies: PENICILLINS (Verified Allergy, Intermediate, itching , 11/05/17) HYDROCODONE (Verified Adverse Reaction, Severe, nausea, 11/05/17) TRAMADOL (Verified Adverse Reaction, Severe, nausea, 11/05/17) CODEINE (Verified Adverse Reaction, Intermediate, nausea, 11/05/17) Objective Last 24 Hour Vital Signs Date Time Temp Pulse Resp B/P (MAP) Pulse Ox O2 Delivery O2 Flow Rate FiO2 02/05/19 16:00 98.9 91 18 151/84 (106) 98 02/05/19 12:00 98.4 96 20 153/78 (103) 97 02/05/19 09:00 Room Air 02/05/19 08:00 97.7 84 19 148/82 (104) 97 02/05/19 04:00 98.5 86 17 145/85 (105) 100 02/05/19 00:00 98.0 75 17 131/61 (84) 98 02/04/19 21:00 Room Air 02/04/19 20:00 97.8 79 19 129/65 (86) 98 Intake and Output 02/04/19 02/05/19 19:00 07:00 Intake Total 440 ml 1095 ml Output Total 1500 ml Balance 440 ml -405 ml Intake Oral 240 ml 720 ml IV Total 200 ml 375 ml Output Urine Total 1500 ml # Voids 2 Laboratory Tests 02/05/19 06:00: White Blood Count 6.9, Red Blood Count 4.04L, Hemoglobin 12.3, Hematocrit 36.8L , Mean Corpuscular Volume 91, Mean Corpuscular Hemoglobin 30.4, Mean Corpuscular Hemoglobin Concent 33.3, Red Cell Distribution Width 12.3, Platelet Count 194, Mean Platelet Volume 5.2L, Neutrophils (%) (Auto) 70.4, Lymphocytes ( %) (Auto) 20.4, Monocytes (%) (Auto) 7.5, Eosinophils (%) (Auto) 1.0, Basophils (%) (Auto) 0.7 Height (Feet): 5 Height (Inches): 10.00 Weight (Pounds): 195 Neck: non-tender Cardiovascular: normal rate, regular rhythm, no JVD Respiratory/Chest: lungs clear Abdomen: non tender, soft Extremities: other - no clubbing Gavin Beaulieu MD February 05, 2019 18:33
--- NOTE | 2019-02-05 19:30 | NUR ---
HAND-OFF: Report given to Ganag JARAMILLO. Patient in stable condition.
--- NOTE | 2019-02-05 19:40 | NUR ---
NURSE NOTES: Received report from CLINT Oshea. Patient in bed awake in high crawford position, showing no signs of acute distress. Respiration even and non labored on room air. No sob noted. IV line patent and intact. Bed in lowest position, wheels locked, and bed alarm on. Call light within reach. All needs attended and met will continue plan of care.
[2019-02-05 20:00] VITALS: BP 156/74
[2019-02-06] VITALS: BP 137/79
--- NOTE | 2019-02-06 01:30 | NUR ---
NURSE NOTES:Patient received from Nancy Zambrano Patient denies any pain at this time . no s/s distress noted . left hip dressing C/D /I . RH g18 H/L Patent and intact . safety and fall implemented . call light within reach . bed in low position at all times . well continue to monitor .
--- NOTE | 2019-02-06 01:31 | NUR ---
Report given to YVAN Parker. Patient stable.
[2019-02-06 04:00] VITALS: BP 156/77
[2019-02-06] MEDS: NovoLOG Insulin Flexpen SUBQ SCH ×4 (05:47→22:19)
[2019-02-06 07:22] LABS: EOSINOPHILS % (AUTO) 1.7 % (0.0-3.0); HEMATOCRIT 34.7 % (37.0-47.0); HEMOGLOBIN 11.8 G/DL (12.0-16.0); LYMPHOCYTES % (AUTO) 28.1 % (20.0-45.0); MEAN CORPUSCULAR VOLUME 88 FL (80-99); MONOCYTES % (AUTO) 6.7 % (1.0-10.0); NEUTROPHILS % (AUTO) 62.5 % (45.0-75.0); PLATELET COUNT 196 K/UL (150-450); RED BLOOD COUNT 3.94 M/UL (4.20-5.40); RED CELL DISTRIBUTION WIDTH 11.9 % (11.6-14.8)
--- NOTE | 2019-02-06 07:30 | NUR ---
NURSE NOTES: Patient is in bed awake and able to verbalize needs. Patient is stable. Denies pain or SOB at this time. Patient encouraged to use call light for assistance, verbalized understanding. Patient is in bed in locked and lowest position with call light within reach. Will continue to monitor.
--- NOTE | 2019-02-06 07:30 | NUR ---
HAND-OFF: Report given to PIEDAD RODRIGUEZ R.N. Addendum: 02/06/19 at 0919 by KATALINA CABRALES LVN REPORT GIVEN TO TENISHA Zambrano disregard the first notes
[2019-02-06 08:00] VITALS: BP 122/72
--- NOTE | 2019-02-06 08:25 | Orthopedic Progress Note ---
Orthopedic - Progress Note Subjective Symptoms: improved Objective Laboratory Tests Test 02/06/19 05:18 White Blood Count 6.0 K/UL (4.8-10.8) Red Blood Count 3.94 M/UL (4.20-5.40) L Hemoglobin 11.8 G/DL (12.0-16.0) L Hematocrit 34.7 % (37.0-47.0) L Mean Corpuscular Volume 88 FL (80-99) Mean Corpuscular Hemoglobin 29.9 PG (27.0-31.0) Mean Corpuscular Hemoglobin Concent 33.9 G/DL (32.0-36.0) Red Cell Distribution Width 11.9 % (11.6-14.8) Platelet Count 196 K/UL (150-450) Mean Platelet Volume 5.0 FL (6.5-10.1) L Neutrophils (%) (Auto) 62.5 % (45.0-75.0) Lymphocytes (%) (Auto) 28.1 % (20.0-45.0) Monocytes (%) (Auto) 6.7 % (1.0-10.0) Eosinophils (%) (Auto) 1.7 % (0.0-3.0) Basophils (%) (Auto) 1.0 % (0.0-2.0) Last 24 Hour Vital Signs Date Time Temp Pulse Resp B/P (MAP) Pulse Ox O2 Delivery O2 Flow Rate FiO2 02/06/19 05:47 99.2 02/06/19 04:00 98.7 98 18 156/77 (103) 02/06/19 00:00 98.7 89 18 137/79 (98) 99 02/05/19 21:00 Room Air 02/05/19 20:00 99.2 97 18 156/74 (101) 99 02/05/19 16:00 98.9 91 18 151/84 (106) 98 02/05/19 12:00 98.4 96 20 153/78 (103) 97 02/05/19 09:00 Room Air Intake and Output 02/05/19 02/06/19 18:59 06:59 Output Total 300 ml Balance -300 ml Output Urine Total 300 ml Laboratory Tests Test 02/06/19 05:18 White Blood Count 6.0 K/UL (4.8-10.8) Red Blood Count 3.94 M/UL (4.20-5.40) L Hemoglobin 11.8 G/DL (12.0-16.0) L Hematocrit 34.7 % (37.0-47.0) L Mean Corpuscular Volume 88 FL (80-99) Mean Corpuscular Hemoglobin 29.9 PG (27.0-31.0) Mean Corpuscular Hemoglobin Concent 33.9 G/DL (32.0-36.0) Red Cell Distribution Width 11.9 % (11.6-14.8) Platelet Count 196 K/UL (150-450) Mean Platelet Volume 5.0 FL (6.5-10.1) L Neutrophils (%) (Auto) 62.5 % (45.0-75.0) Lymphocytes (%) (Auto) 28.1 % (20.0-45.0) Monocytes (%) (Auto) 6.7 % (1.0-10.0) Eosinophils (%) (Auto) 1.7 % (0.0-3.0) Basophils (%) (Auto) 1.0 % (0.0-2.0) Wound: clean, dry, intact Drains: none Neuro Status: normal Vascular Status: normal Assessment Post-op Diagnosis POD 3 Procedure Performed left total hip arthroplasty Plan Plan: discharge plan - to rehab today. dodie álvarez 2 weeks. pt has all outpt meds Romina Faria February 06, 2019 08:25
--- NOTE | 2019-02-06 08:26 | Discharge Summary ---
Discharge Summary Hospital Course Date of Admission February 03, 2019 at 05:50 Date of Discharge 02/06/19 Admitting Diagnosis left hip arthritis Reason for Hospitalization: sp left total hip arthroplasty HPI Ivette Patino is a 68 year old female who was admitted on February 03, 2019 at 05:50 for Traumatic Arthropathy, Left Hip Consultations MD Christofer Procedures left total hip arthroplasty Hospital Course benign Discharge Condition Upon Discharge: improving, stable Discharge Disposition Patient was discharged to rehab Romina Faria February 06, 2019 08:26
[2019-02-06] MEDS: Docusate 100mg cap ORAL SCH ×3 (09:20→18:17)
[2019-02-06] MEDS: celeBREX 200mg Cap **SURGERY PATIENTS ONLY ORAL SCH (09:20)
[2019-02-06] MEDS: Enoxaparin 40mg Inj SUBQ SCH (09:21)
--- NOTE | 2019-02-06 09:30 | NUR ---
NURSE NOTES: Patient dropped Celebrex capsule on the floor. Wasted Celebrex in med destroyer and pyxis and pulled another dose from Pyxis. Administered to patient as ordered, tolerate well.
--- NOTE | 2019-02-06 10:00 | NUR ---
NURSE NOTES: Acknowledged order to discharge patient. Followed up with rn case management Nina about discharge. No placement available at this time. Will continue to follow up. Patient made aware.
--- NOTE | 2019-02-06 10:15 | NUR ---
Social Service Note Message left for Anna [phone] at [facility] following up on bed availability. Awaiting a return call.
--- NOTE | 2019-02-06 11:16 | NUR ---
Social Service Note Additional information faxed to Anna at [facility] [phone]. Auth pending from Work Comp.
[2019-02-06 12:00] VITALS: BP 120/69
--- NOTE | 2019-02-06 14:05 | Diagnostic Imaging Report ---
APPROVED REPORT CPT Code: 49411 Present Symptoms Comments: Pain Post Op BILATERAL: Imaging reveals a patent deep venous system bilaterally. There is no evidence of thrombus within the femoral, popliteal or tibial segments. The greater saphenous veins are also within normal limits. Doppler indicates normal spontaneous flow within these segments.
[2019-02-06 16:00] VITALS: BP 110/69
--- NOTE | 2019-02-06 16:45 | NUR ---
Social Service Note Follow up call placed to Anna at [facility] [phone], auth was not obtained. Per Anna she will follow up on Saturday 02/10. Will continue to follow up.
--- NOTE | 2019-02-06 19:39 | NUR ---
HAND-OFF: Report given to Temitope JARAMILLO. Patient is stable.
--- NOTE | 2019-02-06 19:39 | NUR ---
NURSE NOTES: Report received from Tamar JARAMILLO. Pt is resting in bed in stable condition. Pt is AAO x4. Pt is on room air and breathing is even and unlabored. No acute distress noted. IV site is R hand #18g and is asymptomatic, patent, and intact. Bed is in lowest position with brake engaged, side rails up x3, and bed alarm on. Fall precautions noted to be in place and fall education provided. Call light and side table placed within reach. Surgical site on L hip noted to be clean and intact. Will change PRN and per MD orders. Friend is at bedside with patient. Will continue to monitor.
[2019-02-06 20:00] VITALS: BP 126/72
--- NOTE | 2019-02-06 21:56 | General Progress Note ---
Assessment/Plan Assessment/Plan: doing well pt ot paincontrol to go [facility]ris bain to follow Subjective Date patient seen: February 06, 2019 Time patient seen: 21:56 Constitutional: Reports: no symptoms HEENT: Reports: no symptoms Cardiovascular: Reports: no symptoms Allergies: Coded Allergies: PENICILLINS (Verified Allergy, Intermediate, itching , 11/05/17) HYDROCODONE (Verified Adverse Reaction, Severe, nausea, 11/05/17) TRAMADOL (Verified Adverse Reaction, Severe, nausea, 11/05/17) CODEINE (Verified Adverse Reaction, Intermediate, nausea, 11/05/17) Objective Last 24 Hour Vital Signs Date Time Temp Pulse Resp B/P (MAP) Pulse Ox O2 Delivery O2 Flow Rate FiO2 02/06/19 20:00 98.0 85 20 126/72 (90) 02/06/19 16:00 97.9 88 20 110/69 (83) 97 02/06/19 12:00 97.9 82 20 120/69 (86) 99 02/06/19 09:00 Room Air 02/06/19 08:00 98.5 86 18 122/72 (89) 98 02/06/19 05:47 99.2 02/06/19 04:00 98.7 98 18 156/77 (103) 02/06/19 00:00 98.7 89 18 137/79 (98) 99 Intake and Output 02/05/19 02/06/19 19:00 07:00 Intake Total 600 ml Output Total 800 ml Balance -200 ml Intake Oral 600 ml Output Urine Total 800 ml # Voids 3 Laboratory Tests 02/06/19 05:18: White Blood Count 6.0, Red Blood Count 3.94L, Hemoglobin 11.8L, Hematocrit 34.7L , Mean Corpuscular Volume 88, Mean Corpuscular Hemoglobin 29.9, Mean Corpuscular Hemoglobin Concent 33.9, Red Cell Distribution Width 11.9, Platelet Count 196, Mean Platelet Volume 5.0L, Neutrophils (%) (Auto) 62.5, Lymphocytes ( %) (Auto) 28.1, Monocytes (%) (Auto) 6.7, Eosinophils (%) (Auto) 1.7, Basophils (%) (Auto) 1.0 Height (Feet): 5 Height (Inches): 10.00 Weight (Pounds): 195 General Appearance: WD/WN Neck: non-tender Cardiovascular: normal rate, regular rhythm, no JVD Respiratory/Chest: lungs clear Abdomen: soft Gavin Beaulieu MD February 06, 2019 21:56
[2019-02-07] VITALS: BP 120/68
[2019-02-07 03:56] VITALS: BP 134/76
[2019-02-07] MEDS: NovoLOG Insulin Flexpen SUBQ SCH ×4 (06:30→21:13)
--- NOTE | 2019-02-07 07:17 | NUR ---
HAND-OFF: Report given to Selma Elaine RN. Pt is resting in bed in stable condition. No acute distress noted. Endorsed plan of care.
[2019-02-07 07:20] LABS: BASOPHILS % (AUTO) 2.7 % (0.0-2.0); EOSINOPHILS % (AUTO) 3.7 % (0.0-3.0); HEMATOCRIT 33.4 % (37.0-47.0); HEMOGLOBIN 11.1 G/DL (12.0-16.0); LYMPHOCYTES % (AUTO) 28.1 % (20.0-45.0); MEAN CORPUSCULAR VOLUME 90 FL (80-99); MONOCYTES % (AUTO) 7.2 % (1.0-10.0); NEUTROPHILS % (AUTO) 58.3 % (45.0-75.0); PLATELET COUNT 216 K/UL (150-450); RED BLOOD COUNT 3.73 M/UL (4.20-5.40); RED CELL DISTRIBUTION WIDTH 12.2 % (11.6-14.8)
--- NOTE | 2019-02-07 07:30 | NUR ---
NURSE NOTES: Received report from Temitope JARAMILLO. Patient is awake alert and oriented x4, no acute distress noted. Patient reporting pain in left hip rated 5/10. Patient on bedside commode during rounds, patient's friend/caregiver is at bedside. IV intact and asymptomatic. Abductor pillow at bedside. Fall precautions maintained. Side rails upx3, bed low and locked, call light in reach, patient reminded to call for assistance when getting in and out of bed. Updated on plan of care. Will continue to monitor.
[2019-02-07 08:00] VITALS: BP 130/79
--- NOTE | 2019-02-07 08:44 | NUR ---
NURSE NOTES: Patient reporting some pain in left ankle, mild edema noted, no pitting, ankle is not hot to touch. CMS assessed intact. Patient given ice pack for pain. Will continue to monitor
[2019-02-07] MEDS: Docusate 100mg cap ORAL SCH ×3 (09:35→17:34)
[2019-02-07] MEDS: celeBREX 200mg Cap **SURGERY PATIENTS ONLY ORAL SCH (09:35)
[2019-02-07] MEDS: Enoxaparin 40mg Inj SUBQ SCH (09:37)
--- NOTE | 2019-02-07 10:00 | NUR ---
NURSE NOTES: Patient reports relief of left ankle pain, mild swelling still noted. Patient provided with ice PRN.
[2019-02-07 12:00] VITALS: BP 121/70
--- NOTE | 2019-02-07 15:13 | General Progress Note ---
Assessment/Plan Problem List: (1) Arthritis of left hip ICD Codes: M16.12 - Unilateral primary osteoarthritis, left hip SNOMED: 08942839 (2) Arthritis of right knee ICD Codes: M17.11 - Unilateral primary osteoarthritis, right knee SNOMED: 442037932 (3) Lower leg DVT (deep venous thromboembolism), acute ICD Codes: I82.4Z9 - Acute embolism and thrombosis of unspecified deep veins of unspecified distal lower extremity SNOMED: 099791215 Assessment/Plan: Continue physical therapy DVT prophylaxis Discussed with RN Patient does not want to [facility] Arrangement is being made for [facility] Subjective Allergies: Coded Allergies: PENICILLINS (Verified Allergy, Intermediate, itching , 11/05/17) HYDROCODONE (Verified Adverse Reaction, Severe, nausea, 11/05/17) TRAMADOL (Verified Adverse Reaction, Severe, nausea, 11/05/17) CODEINE (Verified Adverse Reaction, Intermediate, nausea, 11/05/17) Subjective Patient was walking the hallway Objective Last 24 Hour Vital Signs Date Time Temp Pulse Resp B/P (MAP) Pulse Ox O2 Delivery O2 Flow Rate FiO2 02/07/19 12:00 98.3 77 16 121/70 (87) 96 02/07/19 09:00 Room Air 02/07/19 08:38 97.8 02/07/19 08:00 97.8 78 16 130/79 (96) 96 02/07/19 03:56 97.8 73 18 134/76 (95) 97 02/07/19 00:00 97.8 82 20 120/68 (85) 99 02/06/19 21:00 Room Air 02/06/19 20:00 98.0 85 20 126/72 (90) 02/06/19 16:00 97.9 88 20 110/69 (83) 97 Intake and Output 02/06/19 02/07/19 19:00 07:00 Intake Total 240 ml Output Total 200 ml Balance 40 ml Intake Oral 240 ml Output Urine Total 200 ml # Voids 1 Laboratory Tests 02/07/19 06:42: White Blood Count 5.0, Red Blood Count 3.73L, Hemoglobin 11.1L, Hematocrit 33.4L , Mean Corpuscular Volume 90, Mean Corpuscular Hemoglobin 29.8, Mean Corpuscular Hemoglobin Concent 33.2, Red Cell Distribution Width 12.2, Platelet Count 216, Mean Platelet Volume 5.1L, Neutrophils (%) (Auto) 58.3, Lymphocytes ( %) (Auto) 28.1, Monocytes (%) (Auto) 7.2, Eosinophils (%) (Auto) 3.7H, Basophils (%) (Auto) 2.7H Height (Feet): 5 Height (Inches): 10.00 Weight (Pounds): 195 Cardiovascular: normal rate Respiratory/Chest: lungs clear Alex Montoya MD February 07, 2019 15:13
[2019-02-07 16:00] VITALS: BP 108/71
[2019-02-07] MEDS ORDERED: Tubing IV Secondary IV ONE (16:46)
--- NOTE | 2019-02-07 19:38 | NUR ---
HAND-OFF: Report given to Dnaay JARAMILLO. Patient is in stable condition.
[2019-02-07 20:08] VITALS: BP 124/74
--- NOTE | 2019-02-07 20:50 | NUR ---
NURSE NOTES: Patient in bed, awake alert and oriented x4, no s/s distress noted. IV intact and asymptomatic. Abductor pillow at bedside. Fall precautions maintained. Side rails upx3, bed low and locked, call light in reach, bed alarm on. Colleague at bedside. Left hip dressing dry and intact. Will continue to monitor.
--- NOTE | 2019-02-07 22:08 | NUR ---
NURSE NOTES: Nurse offered patient Tylenol prn for pain, patient declined and stated "I'll pass for now, I'll call you if I need it".
[2019-02-08 00:31] VITALS: BP 129/69
[2019-02-08 03:57] VITALS: BP 134/78
[2019-02-08] MEDS: NovoLOG Insulin Flexpen SUBQ SCH ×4 (06:43→20:44)
--- NOTE | 2019-02-08 07:25 | NUR ---
HAND-OFF: Report given to JAMIA GUEVARA RN.
--- NOTE | 2019-02-08 07:30 | NUR ---
NURSE NOTES: Received report from Danay JARAMILLO. Patient is awake alert and oriented x4, no acute distress noted. IV intact. Dressing clean, dry, intact. Patient reports pain 6/10 in left hip, but states "my pain is always a 6" and does not want pain medication at this time. Patient's friend/caregiver at the bedside. Needs met and patient updated on plan of care. Side rails upx2, bed low and locked, call light in reach. Will continue to monitor.
[2019-02-08 08:00] VITALS: BP 129/76
[2019-02-08] MEDS: celeBREX 200mg Cap **SURGERY PATIENTS ONLY ORAL SCH (09:45)
[2019-02-08] MEDS: Docusate 100mg cap ORAL SCH ×3 (09:45→18:39)
[2019-02-08] MEDS: Enoxaparin 40mg Inj SUBQ SCH (09:46)
[2019-02-08 12:00] VITALS: BP 134/67
--- NOTE | 2019-02-08 13:04 | Orthopedic Progress Note ---
Orthopedic - Progress Note Subjective Symptoms: improved - dc held up due to auth issues. Objective Last 24 Hour Vital Signs Date Time Temp Pulse Resp B/P (MAP) Pulse Ox O2 Delivery O2 Flow Rate FiO2 02/08/19 12:00 97.6 61 18 134/67 (89) 99 02/08/19 09:00 Room Air 02/08/19 08:00 98.4 72 19 129/76 (93) 97 02/08/19 03:57 97.6 85 18 134/78 (96) 98 02/08/19 00:31 97.5 84 18 129/69 (89) 96 02/07/19 21:00 Room Air 02/07/19 20:08 98.5 79 18 124/74 (91) 97 02/07/19 16:00 98.0 83 16 108/71 (83) 96 Intake and Output 02/07/19 02/08/19 18:59 06:59 Intake Total 1400 ml 240 ml Output Total 2 ml Balance 1398 ml 240 ml Intake Oral 1400 ml 240 ml Output Urine Total 2 ml # Voids 2 Wound: clean, dry, intact Drains: none Neuro Status: normal Vascular Status: normal Assessment Post-op Diagnosis POD 5 Procedure Performed left total hip arthroplasty Plan Plan: PT, discharge plan - likely to rehab vs home saturday Romina Faria February 08, 2019 13:04
--- NOTE | 2019-02-08 15:19 | NUR ---
CASE MANAGEMENT:REVIEW 02/06/19 SI: POD #3 S/P LT TOTAL HIP ARTHROPLASTY T 97.9 HR 82 RR 20 B/P 120/69 SATS 99% ON RA NO LABS TODAY IS: LOVENOX SUBQ QD CELEBREX PO QD JANUVIA PO QAM SS INSULIN AC+HS IRON PO TID : MED/SURG STATUS 3 [facility] DCP: FROM HOME ~ REFERRED TO [facility] PLAN OF CARE: DC PLANNING 02/07/19 SI: POD #4 S/P LT TOTAL HIP ARTHROPLASTY T 97.8 HR 73 RR 18 B/P 134/76 SATS 97% ON RA NO LABS TODAY IS: LOVENOX SUBQ QD CELEBREX PO QD JANUVIA PO QAM SS INSULIN AC+HS IRON PO TID : MED/SURG STATUS 3 [facility] DCP: FROM HOME ~ REFERRED TO [facility] PLAN OF CARE: DC PLANNING 02/08/19 SI: POD #5 S/P LT TOTAL HIP ARTHROPLASTY T 97.6 HR 61 RR 18 B/P 134/67 SATS 99% ON RA NO LABS TODAY IS: LOVENOX SUBQ QD CELEBREX PO QD JANUVIA PO QAM SS INSULIN AC+HS IRON PO TID : MED/SURG STATUS 3 [facility] DCP: FROM HOME ~ REFERRED TO [facility] PLAN OF CARE: DC PLANNING
[2019-02-08 16:00] VITALS: BP 116/67
--- NOTE | 2019-02-08 18:16 | General Progress Note ---
Assessment/Plan Problem List: (1) Arthritis of left hip ICD Codes: M16.12 - Unilateral primary osteoarthritis, left hip SNOMED: 39524305 (2) Arthritis of right knee ICD Codes: M17.11 - Unilateral primary osteoarthritis, right knee SNOMED: 924012262 (3) Lower leg DVT (deep venous thromboembolism), acute ICD Codes: I82.4Z9 - Acute embolism and thrombosis of unspecified deep veins of unspecified distal lower extremity SNOMED: 528912898 Assessment/Plan: Continue physical therapy DVT prophylaxis Discussed with RN Awaits placement at [facility] if accepted Subjective Allergies: Coded Allergies: PENICILLINS (Verified Allergy, Intermediate, itching , 11/05/17) HYDROCODONE (Verified Adverse Reaction, Severe, nausea, 11/05/17) TRAMADOL (Verified Adverse Reaction, Severe, nausea, 11/05/17) CODEINE (Verified Adverse Reaction, Intermediate, nausea, 11/05/17) Subjective No complaints Objective Last 24 Hour Vital Signs Date Time Temp Pulse Resp B/P (MAP) Pulse Ox O2 Delivery O2 Flow Rate FiO2 02/08/19 12:00 97.6 61 18 134/67 (89) 99 02/08/19 09:00 Room Air 02/08/19 08:00 98.4 72 19 129/76 (93) 97 02/08/19 03:57 97.6 85 18 134/78 (96) 98 02/08/19 00:31 97.5 84 18 129/69 (89) 96 02/07/19 21:00 Room Air 02/07/19 20:08 98.5 79 18 124/74 (91) 97 Intake and Output 02/07/19 02/08/19 19:00 07:00 Intake Total 1400 ml 240 ml Output Total 2 ml Balance 1398 ml 240 ml Intake Oral 1400 ml 240 ml Output Urine Total 2 ml # Voids 2 Height (Feet): 5 Height (Inches): 10.00 Weight (Pounds): 195 Cardiovascular: normal rate Respiratory/Chest: lungs clear Edema: no edema noted Generalized Alex Montoya MD February 08, 2019 18:16
--- NOTE | 2019-02-08 19:30 | NUR ---
HAND-OFF: Report given to Danielle JARAMILLO. Patient is in stable condition.
--- NOTE | 2019-02-08 19:32 | NUR ---
NURSE NOTES: Received report & pt from CLINT Hahn. Pt lying in bed, a&ox4, in room air, friend at bedside. No s/s of acute distress & no c/o pain at this time. Surgical dressing C/D/I. IV site intact & S/L'd. Bed in lowest position, call light within reach. Will continue to monitor.
[2019-02-08 20:00] VITALS: BP 118/73
[2019-02-09 04:00] VITALS: BP 133/75
[2019-02-09] MEDS: NovoLOG Insulin Flexpen SUBQ SCH ×4 (06:30→21:14)
--- NOTE | 2019-02-09 06:39 | NUR ---
NURSE NOTES: Pt refused Mandy scheduled med @ 0630 stating, "I don't want my blood sugar to drop". Explained risks & benefits but continued to refuse. Will continue to monitor.
--- NOTE | 2019-02-09 07:06 | NUR ---
HAND-OFF: Report given to CLINT Anglin. Pt in stable condition. Rounds done.
--- NOTE | 2019-02-09 07:06 | NUR ---
NURSE NOTES: Pt received awake no concerns at this time. Will continue current plan of care.
--- NOTE | 2019-02-09 07:30 | NUR ---
HAND-OFF: Report given to CLINT Ambriz. Pt in stable condition. Rounds done.
--- NOTE | 2019-02-09 07:39 | NUR ---
NURSE NOTES: Pt in bed did not respond when principal technical writer entered room. Merely nodded head. Has a caregiver at bedside. Current plan of care will be followed.
[2019-02-09] MEDS: Docusate 100mg cap ORAL SCH ×3 (08:47→17:58)
[2019-02-09] MEDS: celeBREX 200mg Cap **SURGERY PATIENTS ONLY ORAL SCH (08:48)
[2019-02-09] MEDS: Enoxaparin 40mg Inj SUBQ SCH (08:48)
--- NOTE | 2019-02-09 10:28 | NUR ---
NURSE NOTES: Pt complaining of being in constant pain Dr Martinez here informed f pt allergy to pain medications . gave orders for Morphine 2mg IV q3 hours prn severe pain
[2019-02-09] MEDS ORDERED: Morphine Sulfate 2mg/ml Inj(IV/IM USE ONLY) IVP PRN (10:30)
--- NOTE | 2019-02-09 10:30 | NUR ---
NURSE NOTES: Pt informed of new orders " Just the sound of the name , makes me not want it" Risk and benefits explained
--- NOTE | 2019-02-09 10:42 | General Progress Note ---
Assessment/Plan Problem List: (1) Arthritis of left hip ICD Codes: M16.12 - Unilateral primary osteoarthritis, left hip SNOMED: 03770029 (2) Arthritis of right knee ICD Codes: M17.11 - Unilateral primary osteoarthritis, right knee SNOMED: 169441383 (3) Lower leg DVT (deep venous thromboembolism), acute ICD Codes: I82.4Z9 - Acute embolism and thrombosis of unspecified deep veins of unspecified distal lower extremity SNOMED: 618050041 Assessment/Plan: Continue physical therapy DVT prophylaxis Discussed with RN Awaits placement Subjective Allergies: Coded Allergies: PENICILLINS (Verified Allergy, Intermediate, itching , 11/05/17) HYDROCODONE (Verified Adverse Reaction, Severe, nausea, 11/05/17) TRAMADOL (Verified Adverse Reaction, Severe, nausea, 11/05/17) CODEINE (Verified Adverse Reaction, Intermediate, nausea, 11/05/17) Subjective No complaints Objective Last 24 Hour Vital Signs Date Time Temp Pulse Resp B/P (MAP) Pulse Ox O2 Delivery O2 Flow Rate FiO2 02/09/19 04:00 97.7 70 17 133/75 (94) 100 02/08/19 21:00 Room Air 02/08/19 20:00 98.4 71 16 118/73 (88) 100 02/08/19 16:00 97.9 74 20 116/67 (83) 97 02/08/19 12:00 97.6 61 18 134/67 (89) 99 Intake and Output 02/08/19 02/09/19 19:00 07:00 Intake Total 240 ml 360 ml Balance 240 ml 360 ml Intake Oral 240 ml 360 ml # Voids 1 Height (Feet): 5 Height (Inches): 10.00 Weight (Pounds): 195 Cardiovascular: normal rate Respiratory/Chest: lungs clear Alex Montoya MD February 09, 2019 10:42
[2019-02-09 12:00] VITALS: BP 134/77
[2019-02-09 16:00] VITALS: BP 128/75
--- NOTE | 2019-02-09 18:14 | NUR ---
NURSE NOTES: Pt has several NUNS visiting her refused blood sugar check. Verbalized to be left alone for a while. Currently in prayer. Up and walking with walker required pt teaching for use of Morphine, fearful about side effect. Current plan of care will be followed
--- NOTE | 2019-02-09 19:37 | NUR ---
NURSE NOTES: Received a report from CLINT Anglin. Pt is AAOX4. Able to make needs known. On room air. No IV access. Pt refused IV insertion. Another nun at the bedside. L hip dressing is dry and intact, no bleeding noted. Call light within reach. Will continue to monitor.
[2019-02-09 19:47] VITALS: BP 122/74
--- NOTE | 2019-02-09 19:59 | NUR ---
NURSE NOTES: Pt refused in insertion at this time. Explained that an IV line is needed for IV. t requested a pill. Oncoming nurse present in room during statement. Dressing change , incision clean no dehiscence, no visible swelling, or redness, . Xeroform , 4x4, and Tegaderm applied
--- NOTE | 2019-02-09 20:07 | NUR ---
HAND-OFF: Report given to Mikayla JARAMILLO.
[2019-02-09 23:55] VITALS: BP 129/70
[2019-02-10 04:00] VITALS: BP 146/85
[2019-02-10] MEDS: NovoLOG Insulin Flexpen SUBQ SCH ×3 (06:15→17:25)
--- NOTE | 2019-02-10 07:00 | NUR ---
NURSE NOTES: Called Dr. Beaulieu to inform him that the pt has no IV access and, the pt is refusing for IV insertion. Left the message. Awaiting for call back. CLINT Rosa made aware.
--- NOTE | 2019-02-10 07:20 | NUR ---
HAND-OFF: Report given to CLINT Rosa.
--- NOTE | 2019-02-10 07:20 | NUR ---
NURSE NOTES:BEDSIDE ROUNDS DONE WITH KALLI JARAMILLO.PATIENT SITTING IN CHAIR,A/OX4,ROOM AIR,IN GOOD SPIRIT,NO C/O PAIN,NO IV ACCESS.WILL CONTINUE CURRENT PLAN OF CARE.
[2019-02-10 08:00] VITALS: BP 111/63
[2019-02-10] MEDS: Docusate 100mg cap ORAL SCH ×3 (08:54→17:24)
[2019-02-10] MEDS: celeBREX 200mg Cap **SURGERY PATIENTS ONLY ORAL SCH (08:54)
[2019-02-10 09:11] LABS: BASOPHILS % (AUTO) 1.4 % (0.0-2.0); HEMOGLOBIN 11.7 G/DL (12.0-16.0); LYMPHOCYTES % (AUTO) 24.2 % (20.0-45.0); MEAN CORPUSCULAR VOLUME 90 FL (80-99); MONOCYTES % (AUTO) 6.5 % (1.0-10.0); PLATELET COUNT 312 K/UL (150-450); RED BLOOD COUNT 3.89 M/UL (4.20-5.40); RED CELL DISTRIBUTION WIDTH 12.2 % (11.6-14.8); WHITE BLOOD COUNT 4.8 K/UL (4.8-10.8)
[2019-02-10 09:28] LABS: ANION GAP 5 mmol/L (5-15); BLOOD UREA NITROGEN 15 mg/dL (7-18); CARBON DIOXIDE 28 MMOL/L (21-32); CHLORIDE 104 MMOL/L (98-107); POTASSIUM 4.1 MMOL/L (3.5-5.1); SODIUM 137 MMOL/L (136-145)
[2019-02-10] MEDS: Enoxaparin 40mg Inj SUBQ SCH (09:37)
[2019-02-10 11:30] VITALS: BP 113/63
--- NOTE | 2019-02-10 16:34 | NUR ---
NURSE NOTES:REPORT GIVEN TO REUBEN JARAMILLO.RE:TRANSFER REPORT TO [facility]
[2019-02-10] MEDS ORDERED: ACETAMINOPHEN325 M1 ORAL (16:43)
[2019-02-10] MEDS ORDERED: CELEBREX200 MG ORAL (16:45)
[2019-02-10] MEDS ORDERED: DOCUSATE SODIU100 MG ORAL (16:46)
[2019-02-10] MEDS ORDERED: LOVENOX10 M4 SUBQ (16:47)
[2019-02-10] MEDS ORDERED: JANUVIA25 MG ORAL (16:48)
[2019-02-10 17:00] VITALS: BP 110/62
--- NOTE | 2019-02-10 18:33 | General Progress Note ---
Assessment/Plan Problem List: (1) Arthritis of left hip ICD Codes: M16.12 - Unilateral primary osteoarthritis, left hip SNOMED: 36605374 (2) Arthritis of right knee ICD Codes: M17.11 - Unilateral primary osteoarthritis, right knee SNOMED: 012866152 (3) Lower leg DVT (deep venous thromboembolism), acute ICD Codes: I82.4Z9 - Acute embolism and thrombosis of unspecified deep veins of unspecified distal lower extremity SNOMED: 617558173 Assessment/Plan: Continue physical therapy DVT prophylaxis DC today Subjective Allergies: Coded Allergies: PENICILLINS (Verified Allergy, Intermediate, itching , 11/05/17) HYDROCODONE (Verified Adverse Reaction, Severe, nausea, 11/05/17) TRAMADOL (Verified Adverse Reaction, Severe, nausea, 11/05/17) CODEINE (Verified Adverse Reaction, Intermediate, nausea, 11/05/17) Subjective No complaints Objective Last 24 Hour Vital Signs Date Time Temp Pulse Resp B/P (MAP) Pulse Ox O2 Delivery O2 Flow Rate FiO2 02/10/19 17:00 98.1 74 19 110/62 (78) 99 02/10/19 11:30 97.3 68 20 113/63 (80) 95 02/10/19 08:00 97.7 71 20 111/63 (79) 100 02/10/19 07:20 Room Air 02/10/19 04:00 97.8 85 17 146/85 (105) 100 02/10/19 00:30 98.4 02/09/19 23:55 98.4 68 18 129/70 (89) 100 02/09/19 21:00 Room Air 02/09/19 19:47 97.4 80 16 122/74 (90) 98 Intake and Output 02/09/19 02/10/19 18:59 06:59 Intake Total 1700 ml 240 ml Balance 1700 ml 240 ml Intake Oral 1700 ml 240 ml # Voids 3 3 Laboratory Tests 02/10/19 08:30: White Blood Count 4.8, Red Blood Count 3.89L, Hemoglobin 11.7L, Hematocrit 35.0L , Mean Corpuscular Volume 90, Mean Corpuscular Hemoglobin 30.0, Mean Corpuscular Hemoglobin Concent 33.3, Red Cell Distribution Width 12.2, Platelet Count 312, Mean Platelet Volume 4.7L, Neutrophils (%) (Auto) 64.0, Lymphocytes ( %) (Auto) 24.2, Monocytes (%) (Auto) 6.5, Eosinophils (%) (Auto) 4.0H, Basophils (%) (Auto) 1.4, Sodium Level 137, Potassium Level 4.1, Chloride Level 104, Carbon Dioxide Level 28, Anion Gap 5, Blood Urea Nitrogen 15, Creatinine 1.0, Estimat Glomerular Filtration Rate > 60, Glucose Level 153H, Calcium Level 10.0 Height (Feet): 5 Height (Inches): 10.00 Weight (Pounds): 195 Respiratory/Chest: lungs clear Edema: no edema noted Generalized Alex Montoya MD February 10, 2019 18:33
--- NOTE | 2019-02-10 19:20 | NUR ---
NURSE NOTES: Received a report from CLINT Rosa. Pt is AAOX4. Able to make needs known. On room air. No IV access. Another nuns at the bedside. L hip dressing is dry and intact, no bleeding noted. Call light within reach. Will continue to monitor.
[2019-02-10 20:00] VITALS: BP 110/62
--- NOTE | 2019-02-10 20:57 | NUR ---
NURSE NOTES: Pt got discharged. She is in stable condition. AAOX4. Able to make needs known. No c/o pain/discomfort. Belongings with the pt.
== END 2019-02-10 21:00 | DRG 470 ==
LOC: SDSOVERFLO 05:50 → 3E 12:25
PROC: 0SRB02A Replacement of Left Hip Joint with Metal on Polyethylene Synthetic Substitute, Uncemented, Open Approach (ICD-10-PCS; principal; 2019-02-03 07:30)
DX: M16.12 Unilateral primary osteoarthritis, left hip (principal); I10 Essential (primary) hypertension; E11.9 Type 2 diabetes mellitus without complications; Z96.641 Presence of right artificial hip joint; Z96.653 Presence of artificial knee joint, bilateral
CPT/HCPCS: 36415; 72170; 80048; 81003; 82962; 85025; 86850; 86900; 86901; 87081; 93970; 94003; 94150; J1815; J2250; S0077